=== PATIENT | male | born 1995 | race Caucasian/White ===

== ENCOUNTER 2019-07-31 16:24 | Inpatient (IN) ==
[2019-07-31 17:15] LABS: Basophils # (auto) 0.01 K/uL (0-0.2); Basophils % (auto) 0.1 %; Hematocrit (blood only) 33.9 % (42-52); Hemoglobin 11.7 g/dL (14.0-18.0); Immature Granulocytes # (auto) 0.02 K/uL (0.00-0.02); Immature Granulocytes % (auto) 0.2 %; Lymphocytes % (auto) 12.1 %; Mean Corpuscular Hemoglobin 30.7 pg (25-34); Mean Corpuscular Hgb Conc 34.5 g/dL (32-36); Mean Platelet Volume 11.1 fL (7.4-10.4); Monocytes # (auto) 0.34 K/uL (0.11-0.59); Monocytes % (auto) 4.1 %; Neutrophils # (auto) 6.88 K/uL (1.4-6.5); Neutrophils % (auto) 83.5 %; Platelet Count 202 K/uL (130-400); RDW Coefficient of Variation 12.5 % (11.5-14.5); RDW Standard Deviation 39.9 fL (36.4-46.3); Red Blood Count 3.81 M/uL (4.7-6.1); White Blood Count 8.25 K/uL (4.8-10.8)
[2019-07-31] MEDS ORDERED: SODIUM CHLORIDE 0.9% 1000ML 1,000 ML IV SCH (17:15)
[2019-07-31] MEDS ORDERED: MECLIZINE HCL 25 MG TAB PO STA (17:24)
[2019-07-31] MEDS ORDERED: DIAZEPAM 5 MG/ML INJ 10ML VIAL IV STA (17:24)
[2019-07-31] MEDS ORDERED: SODIUM CHLORIDE 0.9% 1000ML 1,000 ML IV ONE ×2 (17:24→17:46)
[2019-07-31] MEDS ORDERED: ACETAMINOPHEN 1,000 MG/100 ML VIAL IV STA (17:25)
[2019-07-31 17:38] LABS: Alanine Aminotransferase 33 U/L (12-78); Albumin Level 3.9 gm/dl (3.4-5.0); Aspartate Aminotransferase 15 U/L (15-37); BUN Creatinine Ratio 45.1 (10-20); Blood Urea Nitrogen 33 mg/dl (7-18); Calcium 8.6 mg/dl (8.5-10.1); Carbon Dioxide 25 mmol/L (21-32); Chloride 106 mmol/L (98-107); Est GFR (African American) > 150.0; Est GFR (Non-African American) 131.7; Glucose 117 mg/dl (70-99); Lipase 43 U/L (73-393); Potassium 3.8 mmol/L (3.5-5.1); Sodium 137 mmol/L (136-145)
[2019-07-31 17:41] LABS: Albumin Globulin Ratio 1.5 (0.9-2); Alkaline Phosphatase 65 U/L (45-117); Bilirubin,Total 0.6 mg/dl (0.2-1); Globulin 2.6 gm/dl (2.5-4.0); Total Protein 6.5 gm/dl (6.4-8.2)
[2019-07-31 18:08] LABS: Creatine Kinase 64 U/L (39-308); Creatine Kinase MB < 1.0 ng/ml (0.5-3.6); Magnesium 2.1 mg/dl (1.8-2.4); Troponin I < 0.015 ng/ml (0-0.045)
[2019-07-31] MEDS ORDERED: OPTIRAY 320 125ml IV PRN (18:41)
[2019-07-31 18:45] LABS: Appearance Urine Clear (Clear); Bilirubin Urine Negative (Negative); Blood Urine Negative (Negative); Color Urine Yellow; Glucose Urine UA Negative (Negative); Leukocyte Esterase Urine Negative (Negative); Nitrite Urine Negative (Negative); Protein Urine Negative (Negative); Specific Gravity Urine 1.027 (1.000-1.030); Urobilinogen Urine Negative (Negative)
--- NOTE | 2019-07-31 18:50 | CT Scan Report ---
CT angio head w con CLINICAL HISTORY: 23 years-old Male with Pt c/o severe dizzinss. Acute severe dizziness with synco pe and nausea COMPARISON STUDY: Head CT of same day TECHNIQUE: Following the IV administration of 118 cc of Optiray 320, CT angiogram of the brain was pe rformed from the skull base to the vertex. Images are reviewed in the axial, sagittal, and coronal pl anes. 3-D MIPS images are created and assessed. IV contrast was administered without complication. Al l measurements were obtained according to NASCET criteria. A dose lowering technique was utilized adh ering to the principles of ALARA. CT DOSE: 1201.56 mGy.cm FINDINGS: CT ANGIOGRAM OF THE BRAIN: The imaged bilateral internal carotid arteries are patent. The bilateral anterior and middle cerebral arteries are also patent. The vertebrobasilar system and posterior cerebral arteries are widely har[place] nt. There is no aneurysm, high-grade stenosis, or proximal branch occlusion identified. Dural sinuses appear patent. IMPRESSION: Unremarkable CTA of the head. The above report was generated using voice recognition software. It may contain grammatical, syntax o r spelling errors. Electronically signed by: Jerome Sanchez M.D. 07/31/2019 6:49 PM
[2019-07-31 18:53] LABS: Ketones Urine 4+ (Negative)
--- NOTE | 2019-07-31 18:55 | CT Scan Report ---
CT angio neck with con CLINICAL HISTORY: Severe dizziness. NAUSEA, possible stroke. Possible dissection. COMPARISON STUDY: No previous studies for comparison. TECHNIQUE: CT angiography was performed from the aortic arch to the skull base. MIP imaging was perfo rmed. The patient was scanned in a dynamic helical fashion during intravenous administration of 118 c c of Optiray 320. A dose lowering technique was utilized adhering to the principles of ALARA. CT DOSE: Technique: CT angiogram of the carotid and vertebral arteries was obtained using intravenous contrast and 3-D reconstruction. NASCET criteria was utilized. Findings: There is an 18 mm prevascular soft tissue nodule, likely related to residual thymus. The right carotid revealed no evidence of aneurysm and no evidence of dissection. There is no evidenc e of hemodynamic significant stenosis. The left carotid revealed no evidence of hemodynamic significant stenosis. There is no evidence of an eurysm. There is no evidence of dissection. There is no evidence of hemodynamically significant vertebral stenosis. There is no evidence of verte bral dissection. IMPRESSION: No evidence of hemodynamically significant carotid or vertebral artery stenosis. No evidence of disse ction. Electronically signed by: Manas Candelario M.D. 07/31/2019 6:54 PM
--- NOTE | 2019-07-31 18:55 | CT Scan Report ---
CT head/brain wo con CLINICAL HISTORY: Dizziness. COMPARISON STUDY: No previous studies for comparison. TECHNIQUE: Axial CT of the brain is performed from the vertex to the skull base. IV contrast was not administered for this examination. A dose lowering technique was utilized adhering to the principles of ALARA. CT DOSE: FINDINGS: No intra or extra-axial mass lesions are visualized. There is no CT evidence of acute cortical infarc tion. There is no evidence of midline shift. There is no acute hemorrhage. No calvarial fractures ar e visualized. There is no evidence of pathologic ventricular dilatation. There is partial opacification of a left posterior ethmoid air cell. IMPRESSION: 1. Moderate inflammatory changes within the left ethmoid sinus. Otherwise normal noncontrast head CT. Electronically signed by: Manas Candelario M.D. 07/31/2019 6:53 PM
[2019-07-31] MEDS ORDERED: SODIUM CHLORIDE 0.65% NA SOLN 45 ML (OCEAN) ONE (18:58)
[2019-07-31] MEDS ORDERED: AMOXICILLIN/CLAVULANATE 875 MG TAB PO ONE (18:58)
[2019-07-31] MEDS ORDERED: PANTOprazole 80 MG in DEXTROSE 5% 100 ML IV STA (19:37)
[2019-07-31] MEDS: PANTOprazole 40 MG in DEXTROSE 5% 100 ML IV SCH (20:30)
--- NOTE | 2019-07-31 21:12 | Emergency Department Note ---
Entered by Kristyn Rice acting as a scribe for Estevan Dunn MD History of Present Illness General Chief complaint: Nausea Stated complaint: NAUSEA, ILLNESS Time Seen by Provider: 07/31/19 17:16 Source: patient History of Present Illness Provider complaint: Nausea Onset (ago): day(s) 1 Location: abdomen Relieved By: + none Exacerbated By: + movement Associated symptoms: + nausea/vomiting, + weakness and + other (Dizziness) The patient is a 23 year old male who presents to the Emergency Room with complaints of nausea that began last night. The patient states the symptoms are exacerbated by movement and is not relieved by anything specific. The patient reports he has felt faint and whenever he tries to walk around he collapses. The patient reports experiencing vomiting and dizziness when he sits up and weakness when walking around. The patient denies any abdominal pain or any recent alcohol consumption. The patient mentioned that he has a neurological issue that causes him to get dizzy and faint but it has never included nausea like it is today. The patient denies doing any hardcore physical activity in the past few days. Home Medications Home Medications Medication Instructions Recorded Confirmed Type Unknown Skin Cream 1 applic TOPICAL DAILY 04/18/19 07/31/19 History Unknown Topical Gel 1 applic TOPICAL DAILY 04/18/19 07/31/19 History minocycline 100 mg PO BID 04/18/19 07/31/19 History cholecalciferol (vitamin D3) 1,000 unit PO DAILY 07/31/19 07/31/19 History [Vitamin D3] escitalopram oxalate [Lexapro] 15 mg PO DAILY 07/31/19 07/31/19 History fludrocortisone 0.1 mg PO QAM #30 tab 08/03/19 Rx pantoprazole 40 mg PO QAM #30 tab 08/03/19 Rx Allergies Allergy/AdvReac Type Severity Reaction Status Date / Time sulfamethoxazole Allergy Unknown Unverified 07/31/19 19:54 Past Med/Surg History Medical History No chronic diseases present Surgical History No significant past surgical history Family History Other No pertinent family history in first degree relatives Social History Preferred Language: Vietnamese Communication Ability: Effective Highway Painter Required: No Beliefs That Will Affect Care: None Current Living Situation: Alone Current Living Situation Comment: own room in dormitory Feels Safe at Home: Yes Smoking Status: Never smoker Hx Alcohol Use: Yes Alcohol type: beer Hx Substance Use: No Review of Systems See HPI for pertinent positives & negatives. and A total of 10 systems reviewed and were otherwise negative Physical Exam Vital Signs Vital Signs - 24 hr 07/31/19 16:41 07/31/19 17:00 07/31/19 17:07 Temperature 36.8 C Temperature Source Oral Pulse Rate - Lying Pulse Rate - Sitting Pulse Rate - Standing Pulse Rate 212 H 91 H Pulse Rate from SpO2 Sensor 90 Respiratory Rate 12 14 Respiratory Effort / Characteristics Spontaneous Blood Pressure - Lying Blood Pressure - Sitting Blood Pressure- Standing Blood Pressure 112/68 117/55 L Blood Pressure Mean 82 76 Blood Pressure Position Sitting Pulse Oximetry 100 100 Oxygen Delivery Method Room Air Room Air Sepsis Recent Fever Within 48 Hours No Sepsis New/Unexplained Change in Mental Status No Sepsis Action Taken by Nursing No Action Required 07/31/19 17:14 07/31/19 17:20 07/31/19 17:30 Temperature Temperature Source Pulse Rate - Lying Pulse Rate - Sitting Pulse Rate - Standing Pulse Rate 85 85 83 Pulse Rate from SpO2 Sensor 86 86 84 Respiratory Rate 19 18 15 Respiratory Effort / Characteristics Blood Pressure - Lying Blood Pressure - Sitting Blood Pressure- Standing Blood Pressure 109/50 L Blood Pressure Mean 75 Blood Pressure Position Pulse Oximetry 100 100 100 Oxygen Delivery Method Sepsis Recent Fever Within 48 Hours Sepsis New/Unexplained Change in Mental Status Sepsis Action Taken by Nursing 07/31/19 17:31 07/31/19 17:41 07/31/19 17:50 Temperature Temperature Source Pulse Rate - Lying Pulse Rate - Sitting Pulse Rate - Standing Pulse Rate 83 81 89 Pulse Rate from SpO2 Sensor 84 Respiratory Rate 13 20 15 Respiratory Effort / Characteristics Blood Pressure - Lying Blood Pressure - Sitting Blood Pressure- Standing Blood Pressure Blood Pressure Mean Blood Pressure Position Pulse Oximetry 100 Oxygen Delivery Method Sepsis Recent Fever Within 48 Hours Sepsis New/Unexplained Change in Mental Status Sepsis Action Taken by Nursing 07/31/19 18:00 07/31/19 18:01 07/31/19 18:10 Temperature Temperature Source Pulse Rate - Lying Pulse Rate - Sitting Pulse Rate - Standing Pulse Rate 81 75 73 Pulse Rate from SpO2 Sensor 80 76 75 Respiratory Rate 21 19 18 Respiratory Effort / Characteristics Blood Pressure - Lying Blood Pressure - Sitting Blood Pressure- Standing Blood Pressure 113/55 L Blood Pressure Mean 74 Blood Pressure Position Pulse Oximetry 100 100 100 Oxygen Delivery Method Sepsis Recent Fever Within 48 Hours Sepsis New/Unexplained Change in Mental Status Sepsis Action Taken by Nursing 07/31/19 18:14 07/31/19 18:15 07/31/19 18:17 Temperature Temperature Source Pulse Rate - Lying Pulse Rate - Sitting Pulse Rate - Standing Pulse Rate 83 102 H Pulse Rate from SpO2 Sensor Respiratory Rate 18 17 Respiratory Effort / Characteristics Blood Pressure - Lying Blood Pressure - Sitting Blood Pressure- Standing Blood Pressure 123/56 L 115/64 92/72 L Blood Pressure Mean 72 86 78 Blood Pressure Position Pulse Oximetry Oxygen Delivery Method Sepsis Recent Fever Within 48 Hours Sepsis New/Unexplained Change in Mental Status Sepsis Action Taken by Nursing 07/31/19 18:34 07/31/19 19:08 07/31/19 19:09 Temperature Temperature Source Pulse Rate - Lying 87 Pulse Rate - Sitting 112 H Pulse Rate - Standing 113 H Pulse Rate 93 H 86 Pulse Rate from SpO2 Sensor 94 H 90 Respiratory Rate 17 17 Respiratory Effort / Characteristics Blood Pressure - Lying 123/56 L Blood Pressure - Sitting 115/64 Blood Pressure- Standing 92/72 L Blood Pressure 133/67 Blood Pressure Mean 76 Blood Pressure Position Pulse Oximetry 100 100 Oxygen Delivery Method Sepsis Recent Fever Within 48 Hours Sepsis New/Unexplained Change in Mental Status Sepsis Action Taken by Nursing 07/31/19 19:10 07/31/19 19:26 07/31/19 19:30 Temperature Temperature Source Pulse Rate - Lying Pulse Rate - Sitting Pulse Rate - Standing Pulse Rate 98 H 102 H 92 H Pulse Rate from SpO2 Sensor 96 H 101 H 96 H Respiratory Rate 25 H 20 19 Respiratory Effort / Characteristics Blood Pressure - Lying Blood Pressure - Sitting Blood Pressure- Standing Blood Pressure Blood Pressure Mean Blood Pressure Position Pulse Oximetry 100 100 100 Oxygen Delivery Method Sepsis Recent Fever Within 48 Hours Sepsis New/Unexplained Change in Mental Status Sepsis Action Taken by Nursing 07/31/19 19:40 07/31/19 19:50 07/31/19 20:00 Temperature Temperature Source Pulse Rate - Lying Pulse Rate - Sitting Pulse Rate - Standing Pulse Rate 92 H 85 87 Pulse Rate from SpO2 Sensor 97 H 85 88 Respiratory Rate 16 15 18 Respiratory Effort / Characteristics Blood Pressure - Lying Blood Pressure - Sitting Blood Pressure- Standing Blood Pressure Blood Pressure Mean Blood Pressure Position Pulse Oximetry 100 100 100 Oxygen Delivery Method Sepsis Recent Fever Within 48 Hours Sepsis New/Unexplained Change in Mental Status Sepsis Action Taken by Nursing 07/31/19 20:10 07/31/19 20:20 07/31/19 20:30 Temperature Temperature Source Pulse Rate - Lying Pulse Rate - Sitting Pulse Rate - Standing Pulse Rate 93 H 91 H 92 H Pulse Rate from SpO2 Sensor 92 H 91 H 90 Respiratory Rate 21 18 16 Respiratory Effort / Characteristics Blood Pressure - Lying Blood Pressure - Sitting Blood Pressure- Standing Blood Pressure Blood Pressure Mean Blood Pressure Position Pulse Oximetry 100 100 100 Oxygen Delivery Method Sepsis Recent Fever Within 48 Hours Sepsis New/Unexplained Change in Mental Status Sepsis Action Taken by Nursing 07/31/19 20:39 07/31/19 20:40 Temperature Temperature Source Pulse Rate - Lying Pulse Rate - Sitting Pulse Rate - Standing Pulse Rate 92 H 91 H Pulse Rate from SpO2 Sensor 94 H 89 Respiratory Rate 15 24 Respiratory Effort / Characteristics Blood Pressure - Lying Blood Pressure - Sitting Blood Pressure- Standing Blood Pressure 130/63 Blood Pressure Mean 69 Blood Pressure Position Pulse Oximetry 100 100 Oxygen Delivery Method Sepsis Recent Fever Within 48 Hours Sepsis New/Unexplained Change in Mental Status Sepsis Action Taken by Nursing GENERAL: Awake, alert, well-appearing, in no acute distress. Unable to sit up in bed due to dizziness. HENT: Normocephalic, atraumatic. Oropharynx unremarkable. EYES: Normal conjunctiva. Sclera non-icteric. NECK: Supple. No nuchal rigidity. FROM. No JVD. RESPIRATORY: Clear to auscultation. CARDIAC: Regular rate, normal rhythm. Extremities warm and well perfused. Pulses equal. ABDOMEN: Soft, non-distended. No tenderness to palpation. No rebound or guarding. No masses. RECTAL: Deferred. MUSCULOSKELETAL: Chest examination reveals no tenderness. The back is symmetrical on inspection without obvious abnormality. There is no CVA tenderness to palpation. No joint edema. LOWER EXTREMITIES: Calves are equal size bilaterally and non-tender. No edema. No discoloration. NEURO: Normal sensorium. No sensory or motor deficits noted. SKIN: No rash or jaundice noted. Course Course 1717: Past medical records reviewed. The patient was evaluated in room A01. A complete history and physical exam was performed. 1942: I spoke with Dr. Jesus- Hospitalist about the patient's case and he will accept the patient for further evaluation. Administered Medications Discontinued Medications Acetaminophen (Tylenol) 650 mg PO Q4H PRN PRN Reason: pain/fever Stop: 08/30/19 22:51 Last Admin: 08/02/19 07:49 Dose: 650 mg Documented by: [id number] Admin: 08/01/19 20:44 Dose: 650 mg Documented by: [id number] Admin: 08/01/19 11:49 Dose: 650 mg Documented by: [id number] Admin: 08/01/19 07:48 Dose: 650 mg Documented by: [id number] Amoxicillin/Clavulanate Potassium (Augmentin 875mg) 1 tab PO NOW ONE Stop: 07/31/19 18:59 Last Admin: 07/31/19 19:12 Dose: 1 tab Documented by: [id number] Diazepam (Valium) 5 mg IV NOW STA Stop: 07/31/19 17:25 Last Admin: 07/31/19 17:38 Dose: 5 mg Documented by: [id number] Diphenhydramine HCl (Benadryl) 25 mg IV NOW STA Stop: 08/01/19 11:58 Last Admin: 08/01/19 12:30 Dose: 25 mg Documented by: [id number] Escitalopram Oxalate (Lexapro Tab) 15 mg PO DAILY CONY Stop: 08/31/19 08:59 Last Admin: 08/03/19 09:03 Dose: 15 mg Documented by: [id number] Admin: 08/02/19 08:54 Dose: 15 mg Documented by: [id number] Admin: 08/01/19 09:20 Dose: 15 mg Documented by: [id number] Fludrocortisone Acetate (Florinef) 0.1 mg PO QAM CONY Stop: 09/02/19 09:44 Last Admin: 08/03/19 10:40 Dose: 0.1 mg Documented by: [id number] Sodium Chloride (Nss 1000ml) 1,000 mls @ 999 mls/hr IV .Q1H1M CONY Stop: 07/31/19 18:15 Last Infusion: 07/31/19 18:14 Dose: 0 mls/hr Documented by: [id number] Admin: 07/31/19 17:08 Dose: 999 mls/hr Documented by: [id number] Sodium Chloride (Nss 1000ml) 1,000 mls @ 999 mls/hr IV .Q1H1M ONE Stop: 07/31/19 18:24 Last Infusion: 07/31/19 18:41 Dose: 0 mls/hr Documented by: [id number] Admin: 07/31/19 17:38 Dose: 999 mls/hr Documented by: [id number] Acetaminophen (Ofirmev) 1,000 mg in 100 mls @ 400 mls/hr IV NOW STA Stop: 07/31/19 17:39 Last Infusion: 07/31/19 18:14 Dose: 0 mls/hr Documented by: [id number] Admin: 07/31/19 17:38 Dose: 400 mls/hr Documented by: [id number] Sodium Chloride (Nss 1000ml) 1,000 mls @ 999 mls/hr IV .Q1H1M ONE Stop: 07/31/19 18:46 Last Admin: 07/31/19 18:22 Dose: Not Given Documented by: [id number] Pantoprazole Sodium 80 mg/ (Dextrose) 120 mls @ 480 mls/hr IV NOW STA Stop: 07/31/19 19:51 Last Infusion: 07/31/19 21:34 Dose: 0 mls/hr Documented by: [id number] Admin: 07/31/19 20:30 Dose: 480 mls/hr Documented by: [id number] Pantoprazole Sodium 40 mg/ (Dextrose) 100 mls @ 20 mls/hr IV Q5H [facility] [place] Stop: 08/30/19 19:49 Last Infusion: 08/02/19 16:12 Dose: 0 mls/hr Documented by: [id number] Infusion: 08/02/19 16:12 Dose: 0 mls/hr Documented by: [id number] Infusion: 08/02/19 14:09 Dose: 203 mls/hr Documented by: [id number] Infusion: 08/02/19 13:39 Dose: 20 mls/hr Documented by: [id number] Infusion: 08/02/19 11:17 Dose: 0 mls/hr Documented by: [id number] Admin: 08/02/19 07:52 Dose: 20 mls/hr Documented by: [id number] Infusion: 08/02/19 07:52 Dose: 20 mls/hr Documented by: [id number] Admin: 08/02/19 03:14 Dose: 20 mls/hr Documented by: [id number] Infusion: 08/02/19 03:14 Dose: 20 mls/hr Documented by: [id number] Admin: 08/01/19 22:31 Dose: 20 mls/hr Documented by: [id number] Infusion: 08/01/19 22:31 Dose: 20 mls/hr Documented by: [id number] Admin: 08/01/19 17:42 Dose: 20 mls/hr Documented by: [id number] Infusion: 08/01/19 17:42 Dose: 0 mls/hr Documented by: [id number] Infusion: 08/01/19 13:57 Dose: 0 mls/hr Documented by: [id number] Admin: 08/01/19 11:16 Dose: 20 mls/hr Documented by: [id number] Infusion: 08/01/19 11:08 Dose: 20 mls/hr Documented by: [id number] Admin: 08/01/19 06:08 Dose: 20 mls/hr Documented by: [id number] Infusion: 08/01/19 06:08 Dose: 20 mls/hr Documented by: [id number] Admin: 08/01/19 01:34 Dose: 20 mls/hr Documented by: [id number] Infusion: 08/01/19 01:34 Dose: 0 mls/hr Documented by: [id number] Admin: 07/31/19 20:30 Dose: 20 mls/hr Documented by: [id number] Sodium Chloride (Nss 1000ml) 1,000 mls @ 125 mls/hr IV .Q8H CONY Stop: 08/30/19 22:51 Last Infusion: 08/02/19 16:11 Dose: 0 mls/hr Documented by: [id number] Infusion: 08/02/19 16:11 Dose: 0 mls/hr Documented by: [id number] Infusion: 08/02/19 14:08 Dose: 125 mls/hr Documented by: [id number] Infusion: 08/02/19 13:39 Dose: 125 mls/hr Documented by: [id number] Infusion: 08/02/19 11:16 Dose: 0 mls/hr Documented by: [id number] Admin: 08/02/19 04:54 Dose: 125 mls/hr Documented by: [id number] Infusion: 08/02/19 04:50 Dose: 125 mls/hr Documented by: [id number] Admin: 08/01/19 20:50 Dose: 125 mls/hr Documented by: [id number] Infusion: 08/01/19 20:50 Dose: 125 mls/hr Documented by: [id number] Infusion: 08/01/19 20:06 Dose: 125 mls/hr Documented by: [id number] Infusion: 08/01/19 10:08 Dose: 0 mls/hr Documented by: [id number] Admin: 08/01/19 07:23 Dose: 125 mls/hr Documented by: [id number] Infusion: 08/01/19 07:23 Dose: 125 mls/hr Documented by: [id number] Infusion: 08/01/19 06:51 Dose: 125 mls/hr Documented by: [id number] Admin: 07/31/19 23:28 Dose: 125 mls/hr Documented by: [id number] Lactated Ringer's (Lr) 1,000 mls @ 999 mls/hr IV .Q1H1M ONE Stop: 08/01/19 10:02 Last Infusion: 08/01/19 10:03 Dose: 0 mls/hr Documented by: [id number] Admin: 08/01/19 09:20 Dose: 999 mls/hr Documented by: [id number] Prochlorperazine 10 mg/ (Syringe) 10 mls @ 5 mls/min IV ONE ONE Stop: 08/01/19 12:01 Last Admin: 08/01/19 12:30 Dose: 5 mls/min Documented by: [id number] Sodium Chloride (Nss 1000ml) 1,000 mls @ 15 mls/hr IV .Q24H CONY Stop: 08/02/19 14:29 Last Admin: 08/01/19 15:58 Dose: Not Given Documented by: [id number] Sodium Chloride (Nss 1000ml) 1,000 mls @ 15 mls/hr IV .Q24H CONY Stop: 08/03/19 13:29 Last Admin: 08/02/19 16:45 Dose: Not Given Documented by: [id number] Ioversol (Optiray 320 125ml) 118 ml IV ONCE PRN PRN Reason: Interaction Checking Stop: 08/04/19 18:40 Last Admin: 07/31/19 18:41 Dose: 118 ml Documented by: [id number] Lidocaine HCl (Xylocaine 2%) Confirm Administered Dose 2 ml INFIL .STK-MED ONE Stop: 08/01/19 14:32 Last Admin: 08/01/19 15:58 Dose: Not Given Documented by: [id number] Meclizine HCl (Antivert) 25 mg PO NOW STA Stop: 07/31/19 17:25 Last Admin: 07/31/19 17:38 Dose: 25 mg Documented by: [id number] Midazolam HCl (Versed) Confirm Administered Dose 2 mg .ROUTE .STK-MED ONE Stop: 08/02/19 11:42 Last Admin: 08/02/19 13:39 Dose: Not Given Documented by: [id number] Pantoprazole Sodium (Protonix) 40 mg PO QAM [facility] [place] Stop: 09/02/19 08:59 Last Admin: 08/03/19 09:03 Dose: 40 mg Documented by: [id number] Polyethylene Glycol/Electrolytes (Golytely) 8 dose PO TODAY@0700,1800 [facility] [place] Stop: 08/02/19 07:01 Last Admin: 08/02/19 07:50 Dose: 8 dose Documented by: [id number] Admin: 08/01/19 18:00 Dose: 8 dose Documented by: [id number] Promethazine HCl (Phenergan) 25 mg PO Q6H PRN PRN Reason: Nausea And Vomiting Stop: 08/30/19 22:51 Last Admin: 08/01/19 11:10 Dose: 25 mg Documented by: [id number] Propofol (Diprivan) Confirm Administered Dose 400 mg IV .STK-MED ONE Stop: 08/01/19 14:32 Last Admin: 08/01/19 15:58 Dose: Not Given Documented by: [id number] Propofol (Diprivan) Confirm Administered Dose 200 mg IV .STK-MED ONE Stop: 08/01/19 14:37 Last Admin: 08/01/19 15:58 Dose: Not Given Documented by: [id number] Sodium Chloride (Ector Nasal) 2 sprays NA NOW ONE Stop: 07/31/19 18:59 Last Admin: 07/31/19 19:12 Dose: 2 sprays Documented by: [id number] Sodium Chloride (Sodium Chloride) 1 gm PO NOW STA Stop: 08/03/19 10:28 Last Admin: 08/03/19 10:40 Dose: 1 gm Documented by: [id number] Medical Decision Making Differential Diagnosis Differential diagnosis includes etiologies such as benign positional vertigo, dehydration, hypovolemia, anemia, tumor, infection, hypoglycemia, electrolyte abnormalities, cardiac sources, intracerebral event, toxicologic, neurologic, as well as others were entertained. Medical Records Attestation: I reviewed the patient's medical records. Home Medications Current Medication List: was personally reviewed by me Laboratory Data Attestation: I reviewed the patient's lab results. Result diagrams: 08/03/19 07:39 08/03/19 07:39 Lab Results 07/31/19 07/31/19 07/31/19 Range/Units 17:01 17:01 17:01 WBC 8.25 (4.8-10.8) K/uL RBC 3.81 L (4.7-6.1) M/uL Hgb 11.7 L (14.0-18.0) g/dL Hct 33.9 L (42-52) % MCV 89.0 (80-100) fL MCH 30.7 (25-34) pg MCHC 34.5 (32-36) g/dL RDW Std Deviation 39.9 (36.4-46.3) fL RDW Coeff of Monica 12.5 (11.5-14.5) % Plt Count 202 (130-400) K/uL MPV 11.1 H (7.4-10.4) fL Immature Gran % (Auto) 0.2 % Neut % (Auto) 83.5 % Lymph % (Auto) 12.1 % [place] % (Auto) 4.1 % Eos % (Auto) 0.0 % Baso % (Auto) 0.1 % Immature Gran # (Auto) 0.02 (0.00-0.02) K/uL Neut # (Auto) 6.88 H (1.4-6.5) K/uL Lymph # (Auto) 1.00 L (1.2-3.4) K/uL [place] # (Auto) 0.34 (0.11-0.59) K/uL Eos # (Auto) 0.00 (0-0.5) K/uL Baso # (Auto) 0.01 (0-0.2) K/uL Sodium 137 (136-145) mmol/L Potassium 3.8 (3.5-5.1) mmol/L Chloride 106 (98-107) mmol/L Carbon Dioxide 25 (21-32) mmol/L Anion Gap 6.0 (3-11) BUN 33 H (7-18) mg/dl Creatinine 0.73 (0.6-1.4) mg/dl Est Cr Clr Drug Dosing Not Reportable Est GFR ( Amer) > 150.0 Est GFR (Non-Af Amer) 131.7 BUN/Creatinine Ratio 45.1 H (10-20) Glucose 117 H (70-99) mg/dl Calcium 8.6 (8.5-10.1) mg/dl Magnesium 2.1 (1.8-2.4) mg/dl Total Bilirubin 0.6 (0.2-1) mg/dl AST 15 (15-37) U/L ALT 33 (12-78) U/L Alkaline Phosphatase 65 (45-117) U/L Total Creatine Kinase 64 (39-308) U/L CK-MB (CK-2) < 1.0 (0.5-3.6) ng/ml CK/CKMB % Calc TNP Troponin I < 0.015 (0-0.045) ng/ml Total Protein 6.5 (6.4-8.2) gm/dl Albumin 3.9 (3.4-5.0) gm/dl Globulin 2.6 (2.5-4.0) gm/dl Albumin/Globulin Ratio 1.5 (0.9-2) Lipase 43 L (73-393) U/L Urine Color Urine Appearance (Clear) Urine pH (4.5-7.5) Ur Specific Ald[place] (1.000-1.030) Urine Protein (Negative) Urine Glucose (UA) (Negative) Urine Ketones (Negative) Urine Blood (Negative) Urine Nitrite (Negative) Urine Bilirubin (Negative) Urine Urobilinogen (Negative) Ur Leukocyte Esterase (Negative) Blood Type Blood Type Recheck Antibody Screen Crossmatch 07/31/19 07/31/19 08/01/19 Range/Units 18:25 19:40 01:01 WBC (4.8-10.8) K/uL RBC (4.7-6.1) M/uL Hgb 8.4 L D (14.0-18.0) g/dL Hct 24.4 L (42-52) % MCV (80-100) fL MCH (25-34) pg MCHC (32-36) g/dL RDW Std Deviation (36.4-46.3) fL RDW Coeff of Monica (11.5-14.5) % Plt Count (130-400) K/uL MPV (7.4-10.4) fL Immature Gran % (Auto) % Neut % (Auto) % Lymph % (Auto) % [place] % (Auto) % Eos % (Auto) % Baso % (Auto) % Immature Gran # (Auto) (0.00-0.02) K/uL Neut # (Auto) (1.4-6.5) K/uL Lymph # (Auto) (1.2-3.4) K/uL [place] # (Auto) (0.11-0.59) K/uL Eos # (Auto) (0-0.5) K/uL Baso # (Auto) (0-0.2) K/uL Sodium (136-145) mmol/L Potassium (3.5-5.1) mmol/L Chloride (98-107) mmol/L Carbon Dioxide (21-32) mmol/L Anion Gap (3-11) BUN (7-18) mg/dl Creatinine (0.6-1.4) mg/dl Est Cr Clr Drug Dosing Est GFR ( Amer) Est GFR (Non-Af Amer) BUN/Creatinine Ratio (10-20) Glucose (70-99) mg/dl Calcium (8.5-10.1) mg/dl Magnesium (1.8-2.4) mg/dl Total Bilirubin (0.2-1) mg/dl AST (15-37) U/L ALT (12-78) U/L Alkaline Phosphatase (45-117) U/L Total Creatine Kinase (39-308) U/L CK-MB (CK-2) (0.5-3.6) ng/ml CK/CKMB % Calc Troponin I (0-0.045) ng/ml Total Protein (6.4-8.2) gm/dl Albumin (3.4-5.0) gm/dl Globulin (2.5-4.0) gm/dl Albumin/Globulin Ratio (0.9-2) Lipase (73-393) U/L Urine Color Yellow Urine Appearance Clear (Clear) Urine pH 6.0 (4.5-7.5) Ur Specific Ald[place] 1.027 (1.000-1.030) Urine Protein Negative (Negative) Urine Glucose (UA) Negative (Negative) Urine Ketones 4+ H (Negative) Urine Blood Negative (Negative) Urine Nitrite Negative (Negative) Urine Bilirubin Negative (Negative) Urine Urobilinogen Negative (Negative) Ur Leukocyte Esterase Negative (Negative) Blood Type A Positive Blood Type Recheck Antibody Screen NEGATIVE Crossmatch See Detail 08/01/19 08/01/19 08/01/19 Range/Units 01:01 06:53 06:53 WBC (4.8-10.8) K/uL RBC (4.7-6.1) M/uL Hgb 8.1 L (14.0-18.0) g/dL Hct 23.6 L (42-52) % MCV (80-100) fL MCH (25-34) pg MCHC (32-36) g/dL RDW Std Deviation (36.4-46.3) fL RDW Coeff of Monica (11.5-14.5) % Plt Count (130-400) K/uL MPV (7.4-10.4) fL Immature Gran % (Auto) % Neut % (Auto) % Lymph % (Auto) % [place] % (Auto) % Eos % (Auto) % Baso % (Auto) % Immature Gran # (Auto) (0.00-0.02) K/uL Neut # (Auto) (1.4-6.5) K/uL Lymph # (Auto) (1.2-3.4) K/uL [place] # (Auto) (0.11-0.59) K/uL Eos # (Auto) (0-0.5) K/uL Baso # (Auto) (0-0.2) K/uL Sodium 141 (136-145) mmol/L Potassium 3.7 (3.5-5.1) mmol/L Chloride 111 H (98-107) mmol/L Carbon Dioxide 25 (21-32) mmol/L Anion Gap 5.0 (3-11) BUN 18 (7-18) mg/dl Creatinine 0.71 (0.6-1.4) mg/dl Est Cr Clr Drug Dosing 172.9 Est GFR ( Amer) > 150.0 Est GFR (Non-Af Amer) 133.2 BUN/Creatinine Ratio 24.6 H (10-20) Glucose 85 (70-99) mg/dl Calcium 8.2 L (8.5-10.1) mg/dl Magnesium (1.8-2.4) mg/dl Total Bilirubin 0.5 (0.2-1) mg/dl AST 10 L (15-37) U/L ALT 23 (12-78) U/L Alkaline Phosphatase 46 (45-117) U/L Total Creatine Kinase (39-308) U/L CK-MB (CK-2) (0.5-3.6) ng/ml CK/CKMB % Calc Troponin I (0-0.045) ng/ml Total Protein 4.6 L D (6.4-8.2) gm/dl Albumin 2.7 L (3.4-5.0) gm/dl Globulin 1.9 L (2.5-4.0) gm/dl Albumin/Globulin Ratio 1.4 (0.9-2) Lipase (73-393) U/L Urine Color Urine Appearance (Clear) Urine pH (4.5-7.5) Ur Specific [place] (1.000-1.030) Urine Protein (Negative) Urine Glucose (UA) (Negative) Urine Ketones (Negative) Urine Blood (Negative) Urine Nitrite (Negative) Urine Bilirubin (Negative) Urine Urobilinogen (Negative) Ur Leukocyte Esterase (Negative) Blood Type Blood Type Recheck A Positive Antibody Screen Crossmatch Imaging Data Radiologist's Impression: Radiology results as stated below per my review and the radiologist's interpretation: CT head/brain wo con CLINICAL HISTORY: Dizziness. COMPARISON STUDY: No previous studies for comparison. TECHNIQUE: Axial CT of the brain is performed from the vertex to the skull base. IV contrast was not administered for this examination. A dose lowering technique was utilized adhering to the principles of ALARA. CT DOSE: FINDINGS: No intra or extra-axial mass lesions are visualized. There is no CT evidence of acute cortical infarction. There is no evidence of midline shift. There is no acute hemorrhage. No calvarial fractures are visualized. There is no evidence of pathologic ventricular dilatation. There is partial opacification of a left posterior ethmoid air cell. IMPRESSION: 1. Moderate inflammatory changes within the left ethmoid sinus. Otherwise normal noncontrast head CT. Electronically signed by: Manas Candelario M.D. 07/31/2019 6:[address] angio head w con CLINICAL HISTORY: 23 years-old Male with Pt c/o severe dizzinss. Acute severe dizziness with syncope and nausea COMPARISON STUDY: Head CT of same day TECHNIQUE: Following the IV administration of 118 cc of Optiray 320, CT angiogram of the brain was performed from the skull base to the vertex. Images are reviewed in the axial, sagittal, and coronal planes. 3-D MIPS images are created and assessed. IV contrast was administered without complication. All measurements were obtained according to NASCET criteria. A dose lowering technique was utilized adhering to the principles of ALARA. CT DOSE: 1201.56 mGy.cm FINDINGS: CT ANGIOGRAM OF THE BRAIN: The imaged bilateral internal carotid arteries are patent. The bilateral anterior and middle cerebral arteries are also patent. The vertebrobasilar system and posterior cerebral arteries are widely patent. There is no aneurysm, high-grade stenosis, or proximal branch occlusion identified. Dural sinuses appear patent. IMPRESSION: Unremarkable CTA of the head. The above report was generated using voice recognition software. It may contain grammatical, syntax or spelling errors. Electronically signed by: Jerome Sanchez M.D. 07/31/2019 6:[address] angio neck with con CLINICAL HISTORY: Severe dizziness. NAUSEA, possible stroke. Possible d issection. COMPARISON STUDY: No previous studies for comparison. TECHNIQUE: CT angiography was performed from the aortic arch to the skull base. MIP imaging was performed. The patient was scanned in a dynamic helical fashion during intravenous administration of 118 cc of Optiray 320. A dose lowering technique was utilized adhering to the principles of ALARA. CT DOSE: Technique: CT angiogram of the carotid and vertebral arteries was obtained using intravenous contrast and 3-D reconstruction. NASCET criteria was utilized. Findings: There is an 18 mm prevascular soft tissue nodule, likely related to residual thymus. The right carotid revealed no evidence of aneurysm and no evidence of dissection. There is no evidence of hemodynamic significant stenosis. The left carotid revealed no evidence of hemodynamic significant stenosis. There is no evidence of aneurysm. There is no evidence of dissection. There is no evidence of hemodynamically significant vertebral stenosis. There is no evidence of vertebral dissection. IMPRESSION: No evidence of hemodynamically significant carotid or vertebral artery stenosis. No evidence of dissection. Electronically signed by: Manas Candelario M.D. 07/31/2019 6:54 PM ECG Data Attestation: I personally reviewed and interpreted this ECG as follows: Indication: + nausea Rate (beats per minute): 85 Rhythm: + normal sinus ECG Intervals/blocks: + Normal QT-c (QTC is 445) ECG ST segments: + Normal ST segments ECG Findings: + Other (Normal axis) Blood Pressure Blood Pressure Findings: Elevated blood pressure Blood Pressure Disposition: further management by hospitalist [facility] Narrative This is a 23-year-old male who presents emergency department complaining of severe dizziness. The patient has a very elevated heart rate upon arrival to the emergency department therefore he was given 2 L of fluid started on Valium as well as meclizine. His hemoglobin was found to be depressed therefore discussing the case with the patient and his mother the patient has been taking a large amount of NSAIDs and I suspect gave himself a GI bleed as he is heme positive on physical examination. He was started on Protonix IV bolus and drip. I did discuss the case with the hospitalist service who agreed to meet the patient. Patient and family were in agreement with the treatment plan. Impression & Plan Acute GI bleeding, Anemia, NSAID long-term use, Dizziness Discharge Plan Visit Data *Final* Discharge Date/Time: 07/31/19 22:32 Chief Complaint: Nausea Stated Complaint: NAUSEA, ILLNESS ED Provider: Estevan Dunn Discharge Problem: Acute GI bleeding, Anemia, NSAID long-term use, Dizziness Patient Disposition: Admitted As Inpatient Discharge Instructions Interventions: ED Discharge Assessment Last Done: 07/31/19 22:32 Discharge Problem: Anemia Qualifiers: Anemia type: unspecified type Qualified Code(s): D64.9 - Anemia, unspecified The scribe's documentation has been prepared under my direction and personally reviewed by me in its entirety. I confirm that the note above accurately reflects all work, treatment, procedures, and medical decision making performed by me.
--- NOTE | 2019-07-31 21:59 | History & Physical Report ---
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 -Monitor h&h q6h -consulted GI; appreciate recs -NPO -IVF -IV protonix Dizziness/nausea/vomiting/collapse/weakness -Phenergan for nausea/vomiting (avoiding zofran in light of lexapro use) -IVF -Has been undergoing investigation as outpatient: thought possible a version of POTS, is due for cardiology appointment in next month -Mother notes family history of HOCM: will order echo for morning -CT Head, CTAngio head/neck normal Anxiety -Cont lexapro 15 DVTP: SCDs in light of GI bleed; low risk for DVT Code: FULL Dispo: admit to med/surg (2) NSAID long-term use: (3) Dizziness: (4) Anxiety and depression: (5) Nausea and vomiting: (6) Collapse: History of Present Illness Chief Complaint: weakness, dark stool Primary Care Provider: [facility] Patient is a pleasant 23-year-old male [employer] student with past medical history of anxiety. He presents to the ER with an acute worsening of chronic dark stool which he noted today. He notes that he takes approximately 3 tablets of regular strength Motrin 3 times a day and has been doing so for the past several months. Manan has been experiencing symptoms of regular weakness, dizziness, fatigue, for which he is being worked up by his PCP, endocrinology, and a pending cardiology consult. He states that taking the Motrin has seemed to help with the symptoms and therefore that is why he is been taking this for so long. He notes that he has noticed some dark stool in the past however today especially it seemed closer to black in color which was concerning to him. He also notes that yesterday he felt extremely fatigued, was having difficulty sleeping, reports nausea, vomiting, weakness. He got up to use the restroom at which time he collapsed and is unsure if he passed out, but laid on the floor until he was found by his roommate. He was due to have a appointment at [facility] today, however felt too weak to get up and go to this appointment. When he vomited today he states this was green in color and denies any pink frothy or red substance in the vomit. Evaluation in the ER disclosed an anemia with a hemoglobin of 11.7 and hematocrit of 34. Labs were otherwise within normal limits. Because of his collapse, he was investigated with a CT head and CT Angio of head and neck which were found to be normal. Allergies Allergy/AdvReac Type Severity Reaction Status Date / Time sulfamethoxazole Allergy Unknown Unverified 07/31/19 19:54 Home Medications Home Medications Medication Instructions Recorded Confirmed Type Unknown Skin Cream 1 applic TOPICAL DAILY 04/18/19 07/31/19 History Unknown Topical Gel 1 applic TOPICAL DAILY 04/18/19 07/31/19 History minocycline 100 mg PO BID 04/18/19 07/31/19 History cholecalciferol (vitamin D3) 1,000 unit PO DAILY 07/31/19 07/31/19 History [Vitamin D3] escitalopram oxalate [Lexapro] 15 mg PO DAILY 07/31/19 07/31/19 History ibuprofen [Motrin IB] 600 - 800 mg PO Q6H PRN 07/31/19 07/31/19 History Past Med/Surg History Medical History No chronic diseases present Surgical History No significant past surgical history Family History Other No pertinent family history in first degree relatives Social History Preferred Language: Slovenian Communication Ability: Effective Plate Preparer Required: No Beliefs That Will Affect Care: None Current Living Situation: Alone Current Living Situation Comment: own room in dormitory Other Information That Helps Us Care for You: No Feels Safe at Home: Yes Safety Concerns: Feels Safe At This Time Smoking Status: Never smoker Hx Alcohol Use: Yes Alcohol type: beer Hx Substance Use: No Review of Systems Review of Systems: All systems reviewed & are unremarkable except as noted in HPI & below Constitutional: + fatigue, + malaise and + weakness; no fever Eyes: no blind spots and no diplopia Ear, Nose, Mouth, Throat: + dizziness; no ear pain and no tinnitus Respiratory: no cough and no dyspnea Cardiovascular: + lightheadedness and + syncope; no chest pain and no dyspnea Gastrointestinal: + nausea and + vomiting; no abdominal pain Musculoskeletal: no joint pain Integumentary: no rash Neurologic: + unsteadiness and + syncope Psychiatric: + anxiety Physical Exam Physical Exam: General: Well-appearing male, in no significant distress. HEENT: No scleral icterus, PERRLA, neck supple. Atraumatic. Cardiovascular: Regular rate and rhythm, no extra sounds. Pulmonary: Clear to auscultation bilaterally, normal work of breathing. Abdomen: Soft, nontender, nondistended, positive bowel sounds. Musculoskeletal: Atraumatic, no peripheral edema. Neurologic: Patient awake alert and oriented x 3, full strength in all 4 extremities. Cranial nerves 2 through 12 grossly intact. Skin: Warm, dry, no rash Results & Data Vital Signs (Past 12 Hours) Vital Signs Temp Pulse Resp BP Pulse Ox 07/31/19 20:40 91 H 24 100 07/31/19 20:39 92 H 15 130/63 100 07/31/19 20:30 92 H 16 100 07/31/19 20:20 91 H 18 100 07/31/19 20:10 93 H 21 100 07/31/19 20:00 87 18 100 07/31/19 19:50 85 15 100 07/31/19 19:40 92 H 16 100 07/31/19 19:30 92 H 19 100 07/31/19 19:26 102 H 20 100 07/31/19 19:10 98 H 25 H 100 07/31/19 19:09 86 17 100 07/31/19 19:08 93 H 17 133/67 100 07/31/19 18:17 92/72 L 07/31/19 18:15 102 H 17 115/64 07/31/19 18:14 83 18 123/56 L 07/31/19 18:10 73 18 100 07/31/19 18:01 75 19 100 07/31/19 18:00 81 21 113/55 L 100 07/31/19 17:50 89 15 07/31/19 17:41 81 20 07/31/19 17:31 83 13 100 07/31/19 17:30 83 15 109/50 L 100 07/31/19 17:20 85 18 100 07/31/19 17:14 85 19 100 07/31/19 17:00 91 H 14 117/55 L 100 07/31/19 16:41 98.2 F 212 H 12 112/68 100 Laboratory Results 07/31/19 07/31/19 07/31/19 Range/Units 19:40 18:25 17:01 WBC (4.8-10.8) K/uL RBC (4.7-6.1) M/uL Hgb (14.0-18.0) g/dL Hct (42-52) % MCV (80-100) fL MCH (25-34) pg MCHC (32-36) g/dL RDW Std Deviation (36.4-46.3) fL RDW Coeff of Monica (11.5-14.5) % Plt Count (130-400) K/uL MPV (7.4-10.4) fL Immature Gran % (Auto) % Neut % (Auto) % Lymph % (Auto) % [place] % (Auto) % Eos % (Auto) % Baso % (Auto) % Immature Gran # (Auto) (0.00-0.02) K/uL Neut # (Auto) (1.4-6.5) K/uL Lymph # (Auto) (1.2-3.4) K/uL [place] # (Auto) (0.11-0.59) K/uL Eos # (Auto) (0-0.5) K/uL Baso # (Auto) (0-0.2) K/uL Sodium (136-145) mmol/L Potassium (3.5-5.1) mmol/L Chloride (98-107) mmol/L Carbon Dioxide (21-32) mmol/L Anion Gap (3-11) BUN (7-18) mg/dl Creatinine (0.6-1.4) mg/dl Est Cr Clr Drug Dosing Est GFR ( Amer) Est GFR (Non-Af Amer) BUN/Creatinine Ratio (10-20) Glucose (70-99) mg/dl Calcium (8.5-10.1) mg/dl Magnesium 2.1 (1.8-2.4) mg/dl Total Bilirubin (0.2-1) mg/dl AST (15-37) U/L ALT (12-78) U/L Alkaline Phosphatase (45-117) U/L Total Creatine Kinase 64 (39-308) U/L CK-MB (CK-2) < 1.0 (0.5-3.6) ng/ml CK/CKMB % Calc TNP Troponin I < 0.015 (0-0.045) ng/ml Total Protein (6.4-8.2) gm/dl Albumin (3.4-5.0) gm/dl Globulin (2.5-4.0) gm/dl Albumin/Globulin Ratio (0.9-2) Lipase (73-393) U/L Urine Color Yellow Urine Appearance Clear (Clear) Urine pH 6.0 (4.5-7.5) Ur Specific [place] 1.027 (1.000-1.030) Urine Protein Negative (Negative) Urine Glucose (UA) Negative (Negative) Urine Ketones 4+ H (Negative) Urine Blood Negative (Negative) Urine Nitrite Negative (Negative) Urine Bilirubin Negative (Negative) Urine Urobilinogen Negative (Negative) Ur Leukocyte Esterase Negative (Negative) Blood Type A Positive Antibody Screen NEGATIVE 07/31/19 07/31/19 Range/Units 17:01 17:01 WBC 8.25 (4.8-10.8) K/uL RBC 3.81 L (4.7-6.1) M/uL Hgb 11.7 L (14.0-18.0) g/dL Hct 33.9 L (42-52) % MCV 89.0 (80-100) fL MCH 30.7 (25-34) pg MCHC 34.5 (32-36) g/dL RDW Std Deviation 39.9 (36.4-46.3) fL RDW Coeff of Monica 12.5 (11.5-14.5) % Plt Count 202 (130-400) K/uL MPV 11.1 H (7.4-10.4) fL Immature Gran % (Auto) 0.2 % Neut % (Auto) 83.5 % Lymph % (Auto) 12.1 % [place] % (Auto) 4.1 % Eos % (Auto) 0.0 % Baso % (Auto) 0.1 % Immature Gran # (Auto) 0.02 (0.00-0.02) K/uL Neut # (Auto) 6.88 H (1.4-6.5) K/uL Lymph # (Auto) 1.00 L (1.2-3.4) K/uL [place] # (Auto) 0.34 (0.11-0.59) K/uL Eos # (Auto) 0.00 (0-0.5) K/uL Baso # (Auto) 0.01 (0-0.2) K/uL Sodium 137 (136-145) mmol/L Potassium 3.8 (3.5-5.1) mmol/L Chloride 106 (98-107) mmol/L Carbon Dioxide 25 (21-32) mmol/L Anion Gap 6.0 (3-11) BUN 33 H (7-18) mg/dl Creatinine 0.73 (0.6-1.4) mg/dl Est Cr Clr Drug Dosing Not Reportable Est GFR ( Amer) > 150.0 Est GFR (Non-Af Amer) 131.7 BUN/Creatinine Ratio 45.1 H (10-20) Glucose 117 H (70-99) mg/dl Calcium 8.6 (8.5-10.1) mg/dl Magnesium (1.8-2.4) mg/dl Total Bilirubin 0.6 (0.2-1) mg/dl AST 15 (15-37) U/L ALT 33 (12-78) U/L Alkaline Phosphatase 65 (45-117) U/L Total Creatine Kinase (39-308) U/L CK-MB (CK-2) (0.5-3.6) ng/ml CK/CKMB % Calc Troponin I (0-0.045) ng/ml Total Protein 6.5 (6.4-8.2) gm/dl Albumin 3.9 (3.4-5.0) gm/dl Globulin 2.6 (2.5-4.0) gm/dl Albumin/Globulin Ratio 1.5 (0.9-2) Lipase 43 L (73-393) U/L Urine Color Urine Appearance (Clear) Urine pH (4.5-7.5) Ur Specific [place] (1.000-1.030) Urine Protein (Negative) Urine Glucose (UA) (Negative) Urine Ketones (Negative) Urine Blood (Negative) Urine Nitrite (Negative) Urine Bilirubin (Negative) Urine Urobilinogen (Negative) Ur Leukocyte Esterase (Negative) Blood Type Antibody Screen Diagnostic Findings CT angio neck with con CLINICAL HISTORY: Severe dizziness. NAUSEA, possible stroke. Possible dissection. COMPARISON STUDY: No previous studies for comparison. TECHNIQUE: CT angiography was performed from the aortic arch to the skull base. MIP imaging was performed. The patient was scanned in a dynamic helical fashion during intravenous administration of 118 cc of Optiray 320. A dose lowering technique was utilized adhering to the principles of ALARA. CT DOSE: Technique: CT angiogram of the carotid and vertebral arteries was obtained using intravenous contrast and 3-D reconstruction. NASCET criteria was utilized. Findings: There is an 18 mm prevascular soft tissue nodule, likely related to residual thymus. The right carotid revealed no evidence of aneurysm and no evidence of dissection. There is no evidence of hemodynamic significant stenosis. The left carotid revealed no evidence of hemodynamic significant stenosis. There is no evidence of aneurysm. There is no evidence of dissection. There is no evidence of hemodynamically significant vertebral stenosis. There is no evidence of vertebral dissection. IMPRESSION: No evidence of hemodynamically significant carotid or vertebral artery stenosis. No evidence of dissection. CT angio head w con CLINICAL HISTORY: 23 years-old Male with Pt c/o severe dizzinss. Acute severe dizziness with syncope and nausea COMPARISON STUDY: Head CT of same day TECHNIQUE: Following the IV administration of 118 cc of Optiray 320, CT angiogram of the brain was performed from the skull base to the vertex. Images are reviewed in the axial, sagittal, and coronal planes. 3-D MIPS images are created and assessed. IV contrast was administered without complication. All measurements were obtained according to NASCET criteria. A dose lowering technique was utilized adhering to the principles of ALARA. CT DOSE: 1201.56 mGy.cm FINDINGS: CT ANGIOGRAM OF THE BRAIN: The imaged bilateral internal carotid arteries are patent. The bilateral anterior and middle cerebral arteries are also patent. The vertebrobasilar system and posterior cerebral arteries are widely patent. There is no aneurysm, high-grade stenosis, or proximal branch occlusion identified. Dural sinuses appear patent. IMPRESSION: Unremarkable CTA of the head. CT head/brain wo con CLINICAL HISTORY: Dizziness. COMPARISON STUDY: No previous studies for comparison. TECHNIQUE: Axial CT of the brain is performed from the vertex to the skull base. IV contrast was not administered for this examination. A dose lowering technique was utilized adhering to the principles of ALARA. CT DOSE: FINDINGS: No intra or extra-axial mass lesions are visualized. There is no CT evidence of acute cortical infarction. There is no evidence of midline shift. There is no acute hemorrhage. No calvarial fractures are visualized. There is no evidence of pathologic ventricular dilatation. There is partial opacification of a left posterior ethmoid air cell. IMPRESSION: 1. Moderate inflammatory changes within the left ethmoid sinus. Otherwise normal noncontrast head CT. Code Status & VTE Plan Code Status code VTE Prophylaxis Plan VTE Prophylaxis will be ordered: Yes Supervising Physician Co-Signing Physician Notes Patient was seen and examined by me personally. I reviewed the chart, the orders and discussed the case in detail with Dr. Julia Velasquez MD . I read this H&P and agree with its contents to entirety. Resident Activity Tracking Resident Involvement: Resident Care Provided Care Provided: [facility]
[2019-07-31] MEDS ORDERED: ALUMINUM/MAGNESIUM SUSP 30 ML UDC PO PRN (22:52)
[2019-07-31] MEDS ORDERED: PROMETHAZINE HCL 25 MG TAB PO PRN (22:52)
[2019-07-31] MEDS ORDERED: MAGNESIUM HYDROXIDE SUSP 30 ML UDC PO PRN (22:52)
[2019-07-31] MEDS: SODIUM CHLORIDE 0.9% 1000ML 1,000 ML IV SCH (23:28)
[2019-08-01 01:14] LABS: Hematocrit (blood only) 24.4 % (42-52); Hemoglobin 8.4 g/dL (14.0-18.0)
[2019-08-01] MEDS ORDERED: SODIUM CHLORIDE 0.9% 250 ML IV PRN ×2 (01:27→09:45)
[2019-08-01] MEDS: PANTOprazole 40 MG in DEXTROSE 5% 100 ML IV SCH ×5 (01:34→22:31)
--- NOTE | 2019-08-01 04:22 | Billing Data ---
Coding Level of Care Code 57348 OBS Care - Level 3
[2019-08-01 07:22] LABS: Hematocrit (blood only) 23.6 % (42-52); Hemoglobin 8.1 g/dL (14.0-18.0)
[2019-08-01] MEDS: SODIUM CHLORIDE 0.9% 1000ML 1,000 ML IV SCH ×2 (07:23→20:50)
[2019-08-01] MEDS: ACETAMINOPHEN 325 MG TAB PO PRN ×3 (07:48→20:44)
[2019-08-01 07:56] LABS: Alanine Aminotransferase 23 U/L (12-78); Albumin Globulin Ratio 1.4 (0.9-2); Albumin Level 2.7 gm/dl (3.4-5.0); Alkaline Phosphatase 46 U/L (45-117); Aspartate Aminotransferase 10 U/L (15-37); BUN Creatinine Ratio 24.6 (10-20); Bilirubin,Total 0.5 mg/dl (0.2-1); Blood Urea Nitrogen 18 mg/dl (7-18); Calcium 8.2 mg/dl (8.5-10.1); Carbon Dioxide 25 mmol/L (21-32); Chloride 111 mmol/L (98-107); Creatinine Clr Calc Pharmacy 172.9 ml/min; Est GFR (African American) > 150.0; Est GFR (Non-African American) 133.2; Globulin 1.9 gm/dl (2.5-4.0); Glucose 85 mg/dl (70-99); Potassium 3.7 mmol/L (3.5-5.1); Sodium 141 mmol/L (136-145); Total Protein 4.6 gm/dl (6.4-8.2)
[2019-08-01] MEDS ORDERED: LACTATED RINGER'S 1,000 ML IV ONE (09:02)
[2019-08-01] MEDS: ESCITALOPRAM OXALATE 10 MG TAB PO SCH (09:20)
--- NOTE | 2019-08-01 09:53 | Hospitalist Progress Note ---
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 -Monitor H and H q6h Hemoglobin dropped to 8 from 11. Hemoglobin was likely hemo concentrated --Given that patient is having symptomatic anemia, will transfuse one unit of blood. BP has been lower but is still above 90 systolic. -will remain NPO and will consult GI. -Ordered IVF. -IV protonix Dizziness/nausea/vomiting/collapse/weakness This is likey secondary to his first problem. Patient reports having episodes of tachycardia as an outpatient but has not been diagnosed with POTS. will transfer to med/surg with tele. -Phenergan for nausea/vomiting (avoiding zofran in light of lexapro use) -Has been undergoing investigation as outpatient: thought possible a version of POTS, is due for cardiology appointment in next month -Mother notes family history of HOCM: will order echo for morning -CT Head, CTAngio head/neck normal DVTP: SCDs in light of GI bleed; low risk for DVT Code: FULL Dispo: admit to med/surg (2) NSAID long-term use: Likely contributed to problem 1. Patient likely getting rebound/overuse headaches from this as well. Recommended to cut back once he is discharge. He should cut back from coffee once he completes with finals. (3) Dizziness: likely multifactorial (4) Anxiety and depression: Anxiety -Cont lexapro 15 (5) Nausea and vomiting: (6) Collapse: syncope from problem number 1 Subjective This is a pleasant 23 yo male who reports having 2 syncopal episodes prior to arriving at the hospital. He states that he takes 600 mg of motrin 3 times a day for headaches for the past 3 months.. And drinks 2 cups a day of coffee for the past 3 months. He currently states that he feels more tired today, and "lethargic". He states that he felt dizzy when getting out of bed. He states he only had one dark bowel movement overnight. His mother is at bedside. Review of Systems Review of Systems: All systems reviewed & are unremarkable except as noted in HPI & below Physical Exam Physical Exam: General: Well-appearing male, in no significant distress. HEENT: No scleral icterus, PERRLA, neck supple. Atraumatic. Cardiovascular: Regular rate and rhythm, no extra sounds. Pulmonary: Clear to auscultation bilaterally, normal work of breathing. Abdomen: Soft, nontender, nondistended, positive bowel sounds. Musculoskeletal: Atraumatic, no peripheral edema. Neurologic: Patient awake alert and oriented x 3, full strength in all 4 extremities. Cranial nerves 2 through 12 grossly intact. Skin: Warm, dry, no rash Results & Data Vital Signs (Past 12 Hours) Vital Signs Temp Pulse Pulse Resp BP BP Pulse Ox 08/01/19 08:45 96/64 L 08/01/19 07:39 36.8 C 71 18 92/53 L 99 07/31/19 23:15 37.2 C 16 124/66 98 07/31/19 22:01 102 H 22 100 07/31/19 22:00 88 20 121/46 L 100 PG Care Time/CCT Total # of Minutes Spent Total Time Spent with Patient: Total time spent is greater than 50% in coordination of care (as documented) at patient's floor/unit and/or counseling patient:
[2019-08-01] MEDS ORDERED: DiphenhydrAMINE HCL 50 MG/ML VIAL IV STA (11:57)
[2019-08-01] MEDS ORDERED: PROCHLORPERAZINE 10 MG in SYRINGE 8 ML IV ONE (12:00)
[2019-08-01 13:12] LABS: Hemoglobin 9.2 g/dL (14.0-18.0)
--- NOTE | 2019-08-01 14:18 | Anesthesiology Consultation ---
Date of Service August 01, 2019 Assessment & Plan (1) Encounter for pre-operative examination: Chart Review Chart Review: Acceptable Risk for Surgery and Patient NOT seen in Pre Admission Testing Consults Requested none History Surgery Operation Date: 08/01/19 16:00 Proposed Procedures p Esophagogastroduodenoscopy Dr Jennifer Rodriguez Height/Weight Height: 6 ft 1 in Weight: 74.9 kg Allergies Allergy/AdvReac Type Severity Reaction Status Date / Time sulfamethoxazole Allergy Unknown Unverified 07/31/19 19:54 Medications Home Medications Medication Instructions Recorded Confirmed Last Taken Unknown Skin Cream 1 applic TOPICAL DAILY 04/18/19 07/31/19 Unknown Unknown Topical Gel 1 applic TOPICAL DAILY 04/18/19 07/31/19 Unknown minocycline 100 mg PO BID 04/18/19 07/31/19 Unknown cholecalciferol (vitamin D3) 1,000 unit PO DAILY 07/31/19 07/31/19 Unknown [Vitamin D3] escitalopram oxalate [Lexapro] 15 mg PO DAILY 07/31/19 07/31/19 Unknown ibuprofen [Motrin IB] 600 - 800 mg PO Q6H PRN 07/31/19 07/31/19 Unknown Active Medications Generic Name Dose Route Start Last Admin Trade Name Freq PRN Reason Stop Dose Admin Acetaminophen 650 mg 07/31/19 22:52 08/01/19 11:49 Tylenol PO 08/30/19 22:51 650 mg Q4H PRN Administration pain/fever Escitalopram Oxalate 15 mg 08/01/19 09:00 08/01/19 09:20 Lexapro Tab PO 08/31/19 08:59 15 mg DAILY CONY Administration Pantoprazole Sodium 40 mg/ 100 mls @ 20 mls/hr 07/31/19 19:50 08/01/19 13:57 Dextrose IV 08/30/19 19:49 0 mls/hr Q5H CONY Infusion Sodium Chloride 1,000 mls @ 125 mls/hr 07/31/19 22:52 08/01/19 10:08 Nss 1000ml IV 08/30/19 22:51 0 mls/hr .Q8H CONY Infusion Ioversol 118 ml 07/31/19 18:41 07/31/19 18:41 Optiray 320 125ml IV 08/04/19 18:40 118 ml ONCE PRN Administration Interaction Checking Promethazine HCl 25 mg 07/31/19 22:52 08/01/19 11:10 Phenergan PO 08/30/19 22:51 25 mg Q6H PRN Administration Nausea And Vomiting NPO Date Last Intake of Fluids: 07/31/19 Time Last Intake of Fluids: 20:00 Date Last Intake of Solids: 07/31/19 Time Last Intake of Solids: 20:00 Past Medical History Medical History No chronic diseases present Past Family History Family History Other No pertinent family history in first degree relatives Past Surgical History Surgical History No significant past surgical history Social History Smoking Status: Never smoker Hx Alcohol Use: Yes Alcohol type: beer alcohol intake frequency: a few times a month Hx Substance Use: No Physical Exam Vital Signs Last Vital Signs Temp 36.7 C 08/01/19 14:06 Pulse 117 H 08/01/19 14:06 Resp 20 08/01/19 14:06 BP 111/76 08/01/19 14:06 Pulse Ox 100 08/01/19 14:06 Testing Laboratory Results 08/01/19 12:59 08/01/19 06:53 Urine Color Yellow 07/31/19 18:25 Urine Appearance Clear (Clear) 07/31/19 18:25 Urine pH 6.0 (4.5-7.5) 07/31/19 18:25 Ur Specific [place] 1.027 (1.000-1.030) 07/31/19 18:25 Urine Protein Negative (Negative) 07/31/19 18:25 Urine Glucose (UA) Negative (Negative) 07/31/19 18:25 Urine Ketones 4+ (Negative) H 07/31/19 18:25 Urine Nitrite Negative (Negative) 07/31/19 18:25 Ur Leukocyte Esterase Negative (Negative) 07/31/19 18:25 Blood Type A Positive 07/31/19 19:40 Antibody Screen NEGATIVE 07/31/19 19:40
--- NOTE | 2019-08-01 14:18 | History & Physical Report ---
Date of Service August 01, 2019 History of Present Illness Chief Complaint: anemia, melena Primary Care Provider: [facility] Allergies Allergy/AdvReac Type Severity Reaction Status Date / Time sulfamethoxazole Allergy Unknown Unverified 07/31/19 19:54 Home Medications Home Medications Medication Instructions Recorded Confirmed Type Unknown Skin Cream 1 applic TOPICAL DAILY 04/18/19 07/31/19 History Unknown Topical Gel 1 applic TOPICAL DAILY 04/18/19 07/31/19 History minocycline 100 mg PO BID 04/18/19 07/31/19 History cholecalciferol (vitamin D3) 1,000 unit PO DAILY 07/31/19 07/31/19 History [Vitamin D3] escitalopram oxalate [Lexapro] 15 mg PO DAILY 07/31/19 07/31/19 History ibuprofen [Motrin IB] 600 - 800 mg PO Q6H PRN 07/31/19 07/31/19 History Past Med/Surg History Medical History No chronic diseases present Surgical History No significant past surgical history Family History Other No pertinent family history in first degree relatives Social History Preferred Language: Frisian Communication Ability: Effective Bus Assistant Required: No Beliefs That Will Affect Care: None Current Living Situation: Alone Current Living Situation Comment: own room in dormitory Other Information That Helps Us Care for You: No Feels Safe at Home: Yes Safety Concerns: Feels Safe At This Time Smoking Status: Never smoker Hx Alcohol Use: Yes Alcohol type: beer Hx Substance Use: No Physical Exam Constitutional: well developed and well nourished Respiratory: normal respiratory effort Cardiovascular: Rate/Rhythm: regular rate and regular rhythm Gastrointestinal (Abdomen): Percussion/Palpation: abdomen soft Results & Data Vital Signs (Past 12 Hours) Vital Signs Temp Pulse Pulse Resp BP BP Pulse Ox 08/01/19 14:06 36.7 C 117 H 20 111/76 100 08/01/19 11:08 37.5 C 82 18 98/57 L 100 08/01/19 11:05 36.8 C 78 20 97/62 L 100 08/01/19 10:23 36.9 C 83 18 96/55 L 100 08/01/19 10:20 37 C 77 18 99/47 L 100 08/01/19 10:06 36.7 C 78 16 105/60 08/01/19 08:45 96/64 L 08/01/19 07:39 36.8 C 71 18 92/53 L 99 Code Status & VTE Plan VTE Prophylaxis Plan VTE Prophylaxis will be ordered: Yes
[2019-08-01] MEDS ORDERED: ePHEDrine sulfate 50 MG/ML AMP IV PRN (14:20)
[2019-08-01] MEDS ORDERED: ATROPINE SULFATE 0.1 MG/ML 10ML SYR IV PRN (14:20)
[2019-08-01] MEDS ORDERED: SODIUM CHLORIDE 0.9% 1000ML 1,000 ML IV SCH (14:30)
[2019-08-01] MEDS ORDERED: PROPOFOL IV EMULSION 10 MG/ML 20 ML VIAL IV ONE ×2 (14:31→14:36)
[2019-08-01] MEDS ORDERED: LIDOCAINE HCL 2% 2 ML VIAL/AMP(20MG/ML) INFIL ONE (14:31)
--- NOTE | 2019-08-01 14:39 | GI REPORT ---
Patient Name: Manan Hernandez Procedure Date: 08/01/2019 2:12 PM Date of : 1995 Admit Type: Inpatient Age: 23 Gender: Male Attending MD: Costa Rodriguez MD Procedure: Upper GI endoscopy Providers: Costa Rodriguez MD Referring MD: Piyush Dominguez M.d. Indications: Acute post hemorrhagic anemia, Melena Medicines: Propofol total dose 440 mg IV, Lidocaine 40 mg IV Complications: No immediate complications. Estimated Blood Loss: Estimated blood loss: none. Procedure: Pre-Anesthesia Assessment: - Prior to the procedure, a History and Physical was performed, and patient medications, allergies and sensitivities were reviewed. The patient's tolerance of previous anesthesia was reviewed. - The risks and benefits of the procedure and the sedation options and risks were discussed with the patient. All questions were answered and informed consent was obtained. After obtaining informed consent, the endoscope was passed under direct vision. Throughout the procedure, the patient's blood pressure, pulse, and oxygen saturations were monitored continuously. The Endoscope was introduced through the mouth, and advanced to the fourth part of duodenum. The upper GI endoscopy was accomplished without difficulty. The patient tolerated the procedure well. 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 The Z-line was variable and was found 45 cm from the incisors. One non-bleeding superficial gastric ulcer with no stigmata of bleeding was found in the gastric antrum. The lesion was 4 mm in largest dimension. Estimated blood loss: none. The examined duodenum was normal. 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 - Z-line variable, 45 cm from the incisors. - Non-bleeding gastric ulcer with no stigmata of bleeding. - Normal examined duodenum. - No specimens collected. Recommendation: - [facility]. - Perform a colonoscopy tomorrow. Costa Rodriguez M.D. Costa Rodriguez MD 08/01/2019 2:39:31 PM This report has been signed electronically. Note Initiated On: 08/01/2019 2:12 PM Number of Addenda: 0 I attest to the content of the Intraoperative Record and orders documented therein, exceptions below {[id number]}
--- NOTE | 2019-08-01 15:26 | Anesthesiology Progress Note ---
Date of Service August 01, 2019 Anesthesia Post Procedure Vital Signs Vital Signs: Temp Pulse Pulse Resp BP BP Pulse Ox 08/01/19 15:10 74 16 118/63 100 08/01/19 14:55 76 14 98/39 L 98 08/01/19 14:40 82 16 92/38 L 100 08/01/19 14:06 36.7 C 117 H 20 111/76 100 08/01/19 11:08 37.5 C 82 18 98/57 L 100 08/01/19 11:05 36.8 C 78 20 97/62 L 100 08/01/19 10:23 36.9 C 83 18 96/55 L 100 08/01/19 10:20 37 C 77 18 99/47 L 100 08/01/19 10:06 36.7 C 78 16 105/60 08/01/19 08:45 96/64 L 08/01/19 07:39 36.8 C 71 18 92/53 L 99 07/31/19 23:15 37.2 C 16 124/66 98 07/31/19 22:01 102 H 22 100 07/31/19 22:00 88 20 121/46 L 100 07/31/19 21:50 92 H 24 100 07/31/19 21:40 89 16 100 07/31/19 21:31 93 H 17 100 07/31/19 21:30 103 H 16 116/43 L 100 07/31/19 21:20 102 H 20 100 07/31/19 21:10 97 H 16 100 07/31/19 21:01 105 H 20 100 07/31/19 21:00 101 H 21 111/52 L 100 07/31/19 20:50 92 H 18 100 07/31/19 20:40 91 H 24 100 07/31/19 20:39 92 H 15 130/63 100 07/31/19 20:30 92 H 16 100 07/31/19 20:20 91 H 18 100 07/31/19 20:10 93 H 21 100 07/31/19 20:00 87 18 100 07/31/19 19:50 85 15 100 07/31/19 19:40 92 H 16 100 07/31/19 19:30 92 H 19 100 07/31/19 19:26 102 H 20 100 07/31/19 19:10 98 H 25 H 100 07/31/19 19:09 86 17 100 07/31/19 19:08 93 H 17 133/67 100 07/31/19 18:17 92/72 L 07/31/19 18:15 102 H 17 115/64 07/31/19 18:14 83 18 123/56 L 07/31/19 18:10 73 18 100 07/31/19 18:01 75 19 100 07/31/19 18:00 81 21 113/55 L 100 07/31/19 17:50 89 15 07/31/19 17:41 81 20 07/31/19 17:31 83 13 100 07/31/19 17:30 83 15 109/50 L 100 07/31/19 17:20 85 18 100 07/31/19 17:14 85 19 100 07/31/19 17:00 91 H 14 117/55 L 100 07/31/19 16:41 36.8 C 212 H 12 112/68 100 Pain Intensity Head: Pain Intensity: 8 Transfer of Care Handoff Completed per policy Notes Mental Status: alert / awake / arousable Patient Amnestic to Procedure: Yes Nausea / Vomiting: adequately controlled Pain: adequately controlled Airway Patency, RR, SpO2: stable & adequate BP & HR: stable & adequate Hydration State: stable & adequate Anesthetic Complications: no major complications apparent and Pt Satisfied with anesthetic care
--- NOTE | 2019-08-01 15:32 | Consultation Report ---
DATE OF CONSULTATION: 08/01/2019 REASON FOR EVALUATION: Anemia and melena. 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 He has been taking 3 Advil 3 times a day for the entire fall semester. He has not had any abdominal pain, but he does say that he is getting dizziness and weakness which is being evaluated by his outpatient primary care physicians. The patient states that he collapsed in the bathroom and was found by his roommate. He was brought to the [facility] and then sent to the Emergency Room where he was found to have a hemoglobin of 11.7, which has dropped to 9.2 overnight. He had a melenic stool while here and dropped his blood pressure, and was transferred to the progressive care unit from the regular medical floor and resuscitated with IV fluids and IV propranolol. GI consultation has been requested for evaluation of his anemia and melena. PAST MEDICAL HISTORY: Remarkable for anxiety. MEDICATIONS: Include vitamin D, Lexapro and ibuprofen 600-800 mg 3 times a day. ALLERGIES: SULFAMETHOXAZOLE. FAMILY HISTORY: Negative for any significant illnesses. SOCIAL HISTORY: The patient is a [employer] student, lives in a dormitory. Feels safe. Does not smoke, drinks beer. REVIEW OF SYSTEMS: Positive for some nausea and unsteadiness and anxiety. PHYSICAL EXAMINATION: GENERAL: The patient appears in no acute distress. He does have a little bit of periorbital edema from IV fluids. VITAL SIGNS: Blood pressure is 130/63, pulse 92, O2 saturations 100% on room air. ABDOMEN: Soft and there are no masses, tenderness, or hepatosplenomegaly. The patient underwent an EGD today after informed consent, the patient was found to have 2 small gastric inlet patches at the cricopharyngeus, which are benign and inconsequential. The remainder of the esophagus was normal. In the stomach, he had a 4-millimeter superficial ulcer in the gastric antrum with no stigmata of bleeding. There was no blood or old blood in the stomach or anywhere during the exam. The duodenum was inspected all the way into the fourth portion, and there were no abnormalities found. IMPRESSION: The patient has anemia and heme positive stool and melena. He has a small superficial gastric ulcer from the ibuprofen that he has been taking but it is unlikely that this is the sole source of his blood loss. It is superficial and does not show any stigmata of recent hemorrhage. At this point, I plan on continuing the Protonix and scheduling him for a colonoscopy tomorrow for further evaluation.
[2019-08-01] MEDS: LAVAGE SOLUTION 4000ML PO SCH (18:00)
[2019-08-01 19:13] LABS: Hematocrit (blood only) 32.2 % (42-52); Hemoglobin 11.1 g/dL (14.0-18.0)
[2019-08-02] MEDS: PANTOprazole 40 MG in DEXTROSE 5% 100 ML IV SCH ×2 (03:14→07:52)
[2019-08-02] MEDS: SODIUM CHLORIDE 0.9% 1000ML 1,000 ML IV SCH (04:54)
[2019-08-02] MEDS: ACETAMINOPHEN 325 MG TAB PO PRN (07:49)
[2019-08-02] MEDS: LAVAGE SOLUTION 4000ML PO SCH (07:50)
[2019-08-02] MEDS: ESCITALOPRAM OXALATE 10 MG TAB PO SCH (08:54)
[2019-08-02] MEDS ORDERED: MIDAZOLAM HCL 1 MG/ML 2ML VIAL ONE (11:41)
--- NOTE | 2019-08-02 11:50 | Anesthesiology Consultation ---
Date of Service August 02, 2019 Assessment & Plan (1) Encounter for pre-operative examination: Chart Review Chart Review: Acceptable Risk for Surgery and Patient NOT seen in Pre Admission Testing Consults Requested none History Surgery Operation Date: 08/01/19 16:00 Proposed Procedures p Esophagogastroduodenoscopy Dr Jennifer Rodriguez Operation Date: 08/02/19 16:30 Proposed Procedures p Colonoscopy Dr Jennifer Rodriguez Height/Weight Height: 6 ft 1 in Weight: 74.2 kg Allergies Allergy/AdvReac Type Severity Reaction Status Date / Time sulfamethoxazole Allergy Unknown Unverified 07/31/19 19:54 Medications Home Medications Medication Instructions Recorded Confirmed Last Taken Unknown Skin Cream 1 applic TOPICAL DAILY 04/18/19 07/31/19 Unknown Unknown Topical Gel 1 applic TOPICAL DAILY 04/18/19 07/31/19 Unknown minocycline 100 mg PO BID 04/18/19 07/31/19 Unknown cholecalciferol (vitamin D3) 1,000 unit PO DAILY 07/31/19 07/31/19 Unknown [Vitamin D3] escitalopram oxalate [Lexapro] 15 mg PO DAILY 07/31/19 07/31/19 Unknown ibuprofen [Motrin IB] 600 - 800 mg PO Q6H PRN 07/31/19 07/31/19 Unknown Active Medications Generic Name Dose Route Start Last Admin Trade Name Freq PRN Reason Stop Dose Admin Acetaminophen 650 mg 07/31/19 22:52 08/02/19 07:49 Tylenol PO 08/30/19 22:51 650 mg Q4H PRN Administration pain/fever Escitalopram Oxalate 15 mg 08/01/19 09:00 08/02/19 08:54 Lexapro Tab PO 08/31/19 08:59 15 mg DAILY CONY Administration Pantoprazole Sodium 40 mg/ 100 mls @ 20 mls/hr 07/31/19 19:50 08/02/19 11:17 Dextrose IV 08/30/19 19:49 0 mls/hr Q5H CONY Infusion Sodium Chloride 1,000 mls @ 125 mls/hr 07/31/19 22:52 08/02/19 11:16 Nss 1000ml IV 08/30/19 22:51 0 mls/hr .Q8H CONY Infusion Sodium Chloride 1,000 mls @ 15 mls/hr 08/01/19 14:30 12/05/19 15:58 Nss 1000ml IV 08/02/19 14:29 Not Given .Q24H CONY Ioversol 118 ml 07/31/19 18:41 07/31/19 18:41 Optiray 320 125ml IV 08/04/19 18:40 118 ml ONCE PRN Administration Interaction Checking Promethazine HCl 25 mg 07/31/19 22:52 08/01/19 11:10 Phenergan PO 08/30/19 22:51 25 mg Q6H PRN Administration Nausea And Vomiting NPO Date Last Intake of Fluids: 08/02/19 Time Last Intake of Fluids: 09:00 Last Intake of Fluids Comment: Bowel prep Date Last Intake of Solids: 07/31/19 Time Last Intake of Solids: 20:00 Past Medical History Medical History No chronic diseases present Past Family History Family History Other No pertinent family history in first degree relatives Past Surgical History Surgical History No significant past surgical history Social History Smoking Status: Never smoker Hx Alcohol Use: Yes Alcohol type: beer alcohol intake frequency: a few times a month Hx Substance Use: No Physical Exam Vital Signs Last Vital Signs Temp 37 C 08/02/19 11:28 Pulse 99 H 08/02/19 11:28 Resp 12 08/02/19 11:28 BP 132/66 08/02/19 11:28 Pulse Ox 100 08/02/19 11:28 Testing Laboratory Results 08/01/19 18:54 08/01/19 06:53 Urine Color Yellow 07/31/19 18:25 Urine Appearance Clear (Clear) 07/31/19 18:25 Urine pH 6.0 (4.5-7.5) 07/31/19 18:25 Ur Specific [place] 1.027 (1.000-1.030) 07/31/19 18:25 Urine Protein Negative (Negative) 07/31/19 18:25 Urine Glucose (UA) Negative (Negative) 07/31/19 18:25 Urine Ketones 4+ (Negative) H 07/31/19 18:25 Urine Nitrite Negative (Negative) 07/31/19 18:25 Ur Leukocyte Esterase Negative (Negative) 07/31/19 18:25 Blood Type A Positive 07/31/19 19:40 Antibody Screen NEGATIVE 07/31/19 19:40
[2019-08-02] MEDS ORDERED: ePHEDrine sulfate 50 MG/ML AMP IV PRN (11:51)
[2019-08-02] MEDS ORDERED: ATROPINE SULFATE 0.1 MG/ML 10ML SYR IV PRN (11:51)
--- NOTE | 2019-08-02 12:10 | History & Physical Report ---
Date of Service August 02, 2019 History of Present Illness Chief Complaint: anemia, melena Primary Care Provider: [facility] For [facility] Allergies Allergy/AdvReac Type Severity Reaction Status Date / Time sulfamethoxazole Allergy Unknown Unverified 07/31/19 19:54 Home Medications Home Medications Medication Instructions Recorded Confirmed Type Unknown Skin Cream 1 applic TOPICAL DAILY 04/18/19 07/31/19 History Unknown Topical Gel 1 applic TOPICAL DAILY 04/18/19 07/31/19 History minocycline 100 mg PO BID 04/18/19 07/31/19 History cholecalciferol (vitamin D3) 1,000 unit PO DAILY 07/31/19 07/31/19 History [Vitamin D3] escitalopram oxalate [Lexapro] 15 mg PO DAILY 07/31/19 07/31/19 History ibuprofen [Motrin IB] 600 - 800 mg PO Q6H PRN 07/31/19 07/31/19 History Past Med/Surg History Medical History No chronic diseases present Surgical History No significant past surgical history Family History Other No pertinent family history in first degree relatives Social History Preferred Language: Russian Communication Ability: Effective Feeder Loader Required: No Beliefs That Will Affect Care: None Current Living Situation: Alone Current Living Situation Comment: own room in dormitory Other Information That Helps Us Care for You: No Feels Safe at Home: Yes Safety Concerns: Feels Safe At This Time Smoking Status: Never smoker Hx Alcohol Use: Yes Alcohol type: beer Hx Substance Use: No Physical Exam Constitutional: well developed and well nourished Respiratory: normal respiratory effort Cardiovascular: Rate/Rhythm: regular rate and regular rhythm Gastrointestinal (Abdomen): Percussion/Palpation: abdomen soft Results & Data Vital Signs (Past 12 Hours) Vital Signs Temp Pulse Pulse Resp BP Pulse Ox 08/02/19 11:28 37 C 99 H 12 132/66 100 08/02/19 07:11 73 08/02/19 07:10 37.0 C 85 18 109/61 99 08/02/19 04:10 85 08/02/19 04:08 36.9 C 91 H 19 109/70 99 Code Status & VTE Plan VTE Prophylaxis Plan VTE Prophylaxis will be ordered: Yes
--- NOTE | 2019-08-02 12:35 | GI REPORT ---
Patient Name: Manan Hernandez Procedure Date: 08/02/2019 11:47 AM Date of : 1995 Admit Type: Inpatient Age: 23 Gender: Male Attending MD: Costa Rodriguez MD Procedure: Colonoscopy Providers: Costa Rodriguez MD Referring MD: Piyush Dominguez M.d. Indications: Melena, Acute post hemorrhagic anemia Medicines: Midazolam 2 mg IV, Propofol total dose 200 mg IV, Lidocaine 40 mg IV Complications: No immediate complications. Estimated Blood Loss: Estimated blood loss: none. Procedure: Pre-Anesthesia Assessment: - Prior to the procedure, a History and Physical was performed, and patient medications, allergies and sensitivities were reviewed. The patient's tolerance of previous anesthesia was reviewed. - The risks and benefits of the procedure and the sedation options and risks were discussed with the patient. All questions were answered and informed consent was obtained. After I obtained informed consent, the scope was passed under direct vision. Throughout the procedure, the patient's blood pressure, pulse, and oxygen saturations were monitored continuously. The Colonoscope was introduced through the anus and advanced to the terminal ileum. The colonoscopy was performed without difficulty. The patient tolerated the procedure well. The quality of the bowel preparation was excellent. Findings: The terminal ileum appeared normal. The entire examined colon appeared normal. Impression: - The examined portion of the ileum was normal. - The entire examined colon is normal. - No specimens collected. Recommendation: - [facility]. Costa Rodriguez M.D. Costa Rodriguez MD 08/02/2019 12:34:33 PM This report has been signed electronically. Note Initiated On: 08/02/2019 11:47 AM Number of Addenda: 0 I attest to the content of the Intraoperative Record and orders documented therein, exceptions below {[id number]}
--- NOTE | 2019-08-02 13:00 | Progress Note ---
DATE: 08/02/2019 SUBJECTIVE: The patient had no obvious further bleeding overnight and completed his bowel prep and presented for colonoscopy today for evaluation of his melena and anemia. Yesterday, he had a small superficial gastric ulcer discovered probably related to the ibuprofen that he has been taking. His colonoscopy was completed through the terminal ileum. The prep was excellent. There was no blood anywhere in the bowel and there was no source of blood loss found anywhere. The colon and ileum were completely normal. PHYSICAL EXAMINATION: His blood pressure is 132/66, pulse 99, respirations 12, O2 saturation on room air is 100%. Today his hemoglobin is 11.1 following 1 unit of blood transfusions. IMPRESSION: The patient has no source of blood loss found in the colon. It is possible that the ulcer in his stomach was the original source of bleeding and I would recommend that his diet be advanced and he stay on proton pump inhibitor for 2 months and avoid all nonsteroidals going forward. If he has further anemia or worsening symptoms, we can do an outpatient video capsule.
[2019-08-02] MEDS ORDERED: SODIUM CHLORIDE 0.9% 1000ML 1,000 ML IV SCH (13:30)
--- NOTE | 2019-08-02 15:04 | Anesthesiology Progress Note ---
Date of Service August 02, 2019 Anesthesia Post Procedure Vital Signs Vital Signs: Temp Pulse Pulse Resp BP Pulse Ox 08/02/19 13:04 90 16 127/71 100 08/02/19 12:48 89 16 101/43 L 98 08/02/19 12:33 82 12 116/53 L 100 08/02/19 11:28 37 C 99 H 12 132/66 100 08/02/19 07:11 73 08/02/19 07:10 37.0 C 85 18 109/61 99 08/02/19 04:10 85 08/02/19 04:08 36.9 C 91 H 19 109/70 99 08/01/19 23:47 37 C 107 H 18 121/70 98 08/01/19 19:20 36.8 C 100 H 18 128/78 97 08/01/19 15:45 37.0 C 98 H 17 103/60 100 08/01/19 15:10 74 16 118/63 100 Pain Intensity Head: Pain Intensity: 8 Transfer of Care Handoff Completed per policy Notes Mental Status: alert / awake / arousable Patient Amnestic to Procedure: Yes Nausea / Vomiting: adequately controlled Pain: adequately controlled Airway Patency, RR, SpO2: stable & adequate BP & HR: stable & adequate Hydration State: stable & adequate Anesthetic Complications: no major complications apparent and Pt Satisfied with anesthetic care
--- NOTE | 2019-08-02 22:41 | Hospitalist Progress Note ---
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 -Monitor H and H q6h Hemoglobin dropped to 8 from 11. Hemoglobin was likely hemo concentrated Imrpoved to 9 after transfusion. This has been stready. Uppare and lower GI scope were negative. Will be on oral PPI daily for 2 weeks. recommend no motrin. will resume diet. Dizziness/nausea/vomiting/collapse/weakness This is likey secondary to his first problem. Patient reports having episodes of tachycardia as an outpatient but has not been diagnosed with POTS. will transfer to med/surg with tele. echo was negative. dizziness has improved. will monitor. DVTP: SCDs in light of GI bleed; low risk for DVT Code: FULL (2) NSAID long-term use: Likely contributed to problem 1. Patient likely getting rebound/overuse headaches from this as well. Recommended to cut back once he is discharge. He should cut back from coffee once he completes with finals. (3) Dizziness: likely multifactorial (4) Anxiety and depression: Anxiety -Cont lexapro 15 (5) Nausea and vomiting: (6) Collapse: syncope from problem number 1 Subjective Patient reports feeling better. he did have an episode of being dizzy when he ambulated from his bed to the bathroom. It was shortlived. Aside from this, patient has no other questions. Review of Systems Review of Systems: All systems reviewed & are unremarkable except as noted in HPI & below Physical Exam Physical Exam: General: Well-appearing male, in no significant distress. HEENT: No scleral icterus, PERRLA, neck supple. Atraumatic. Cardiovascular: Regular rate and rhythm, no extra sounds. Pulmonary: Clear to auscultation bilaterally, normal work of breathing. Abdomen: Soft, nontender, nondistended, positive bowel sounds. Musculoskeletal: Atraumatic, no peripheral edema. Neurologic: Patient awake alert and oriented x 3, full strength in all 4 extremities. Cranial nerves 2 through 12 grossly intact. Skin: Warm, dry, no rash Results & Data Vital Signs (Past 12 Hours) Vital Signs Temp Pulse Pulse Resp BP Pulse Ox 08/02/19 19:13 37.1 C 81 20 138/75 97 08/02/19 18:34 87 08/02/19 15:02 37.2 C 96 H 20 144/67 H 100 08/02/19 13:04 90 16 127/71 100 08/02/19 12:48 89 16 101/43 L 98 08/02/19 12:33 82 12 116/53 L 100 08/02/19 11:28 37 C 99 H 12 132/66 100 PG Care Time/CCT Total # of Minutes Spent Total Time Spent with Patient: Total time spent is greater than 50% in coordination of care (as documented) at patient's floor/unit and/or counseling patient:
[2019-08-03 08:03] LABS: Hematocrit (blood only) 28.1 % (42-52); Hemoglobin 9.6 g/dL (14.0-18.0); Mean Corpuscular Hemoglobin 30.5 pg (25-34); Mean Corpuscular Hgb Conc 34.2 g/dL (32-36); Mean Corpuscular Volume 89.2 fL (80-100); Mean Platelet Volume 10.4 fL (7.4-10.4); Platelet Count 174 K/uL (130-400); RDW Coefficient of Variation 13.1 % (11.5-14.5); RDW Standard Deviation 41.5 fL (36.4-46.3); Red Blood Count 3.15 M/uL (4.7-6.1); White Blood Count 3.24 K/uL (4.8-10.8)
[2019-08-03 08:36] LABS: BUN Creatinine Ratio 10.2 (10-20); Calcium 9.2 mg/dl (8.5-10.1); Creatinine Clr Calc Pharmacy 149.8 ml/min; Est GFR (African American) 147.7; Est GFR (Non-African American) 127.5; Potassium 4.2 mmol/L (3.5-5.1)
[2019-08-03] MEDS ORDERED: PANTOprazole 40 MG TAB PO SCH (09:00)
[2019-08-03] MEDS: ESCITALOPRAM OXALATE 10 MG TAB PO SCH (09:03)
[2019-08-03] MEDS ORDERED: FLUDROCORTISONE ACETATE 0.1 MG TAB PO SCH (09:45)
--- NOTE | 2019-08-03 10:16 | Anesthesiology Progress Note ---
Date of Service August 03, 2019 Anesthesia Post Procedure Vital Signs Vital Signs: Temp Pulse Pulse Resp BP Pulse Ox 08/03/19 07:04 68 08/03/19 06:51 36.6 C 103 H 15 99/62 L 100 08/03/19 04:36 36.7 C 97 H 14 113/74 100 08/03/19 01:21 94 H 08/02/19 23:49 36.9 C 88 15 113/71 98 08/02/19 19:13 37.1 C 81 20 138/75 97 08/02/19 18:34 87 08/02/19 15:02 37.2 C 96 H 20 144/67 H 100 08/02/19 13:04 90 16 127/71 100 08/02/19 12:48 89 16 101/43 L 98 08/02/19 12:33 82 12 116/53 L 100 08/02/19 11:28 37 C 99 H 12 132/66 100 Notes Mental Status: alert / awake / arousable Patient Amnestic to Procedure: Yes Nausea / Vomiting: adequately controlled Pain: adequately controlled Airway Patency, RR, SpO2: stable & adequate BP & HR: stable & adequate Hydration State: stable & adequate Anesthetic Complications: no major complications apparent and Pt Satisfied with anesthetic care
[2019-08-03] MEDS ORDERED: SODIUM CHLORIDE 1 GM TABLET PO STA (10:27)
--- NOTE | 2019-08-05 10:46 | XCELERA ---
[id number]
--- NOTE | 2019-08-06 20:31 | Discharge Summary ---
Date of Service August 03, 2019 Admission HPI Per Admitting Provider Patient is a pleasant 23-year-old male [employer] [facility] [employer] student with past medical history of anxiety. He presents to the ER with an acute worsening of chronic dark stool which he noted today. He notes that he takes approximately 3 tablets of regular strength Motrin 3 times a day and has been doing so for the past several months. Manan has been experiencing symptoms of regular weakness, dizziness, fatigue, for which he is being worked up by his PCP, endocrinology, and a pending cardiology consult. He states that taking the Motrin has seemed to help with the symptoms and therefore that is why he is been taking this for so long. He notes that he has noticed some dark stool in the past however today especially it seemed closer to black in color which was concerning to him. He also notes that yesterday he felt extremely fatigued, was having difficulty sleeping, reports nausea, vomiting, weakness. He got up to use the restroom at which time he collapsed and is unsure if he passed out, but laid on the floor until he was found by his roommate. He was due to have a appointment at [facility] today, however felt too weak to get up and go to this appointment. When he vomited today he states this was green in color and denies any pink frothy or red substance in the vomit. Principal Diagnosis Symptomatic anemia and POTS Discharge Exam General: Well-appearing male, in no significant distress. HEENT: No scleral icterus, PERRLA, neck supple. Atraumatic. Cardiovascular: Regular rate and rhythm, no extra sounds. Pulmonary: Clear to auscultation bilaterally, normal work of breathing. Abdomen: Soft, nontender, nondistended, positive bowel sounds. Musculoskeletal: Atraumatic, no peripheral edema. Neurologic: Patient awake alert and oriented x 3, full strength in all 4 extremities. Cranial nerves 2 through 12 grossly intact. Skin: Warm, dry, no rash Discharge Data Allergies Allergy/AdvReac Type Severity Reaction Status Date / Time sulfamethoxazole Allergy Unknown Unverified 07/31/19 19:54 Consultations 07/31/19 19:36 ED Decision to Admit Stat 07/31/19 22:52 Consult Gastroenterology Routine Procedures Performed Operation Date: 08/01/19 16:00 Actual Procedures p Esophagogastroduodenoscopy - Costa Rodriguez Operation Date: 08/02/19 16:30 Actual Procedures p Colonoscopy - Costa Rodriguez Ordered Studies 07/31/19 17:25 CT angio head w con Stat CT angio neck with con Stat CT head/brain wo con Stat Hospital Course (1) Anemia: Patient is a pleasant 23-year-old male [facility] student with PMH anxiety, presents after collapse, found to be anemia with chronic NSAID use and dark tarry stools. 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 -Monitor H and H q6h Hemoglobin dropped to 8 from 11. Hemoglobin was likely hemo concentrated Improved to 9 after transfusion. Upper and lower scope were negative except for a small ulcer in the stomach. He will be on a PPI for 2 month once daily.as stated in the patient instructions. Dizziness/nausea/vomiting/collapse/weakness This is likey secondary to his first problem. Patient reports having episodes of tachycardia as an outpatient but has not been diagnosed with POTS. transferred to med/surg with tele. echo was negative. dizziness has improved. will monitor. (2) NSAID long-term use: Likely contributed to problem 1. Patient likely getting rebound/overuse headaches from this as well. Recommended to stop NSAIDS once he is discharge. He should cut back from coffee once he completes with finals. (3) Dizziness: likely multifactorial (4) Anxiety and depression: Anxiety -Cont lexapro 15 (5) Nausea and vomiting: (6) Collapse: syncope from problem number 1 (7) POTS (postural orthostatic tachycardia syndrome): Despite being admitted for anemia, and improving his anemia by transfusion. Patient hemoglobin improved, but his symptoms remained. given his history, it appears to be that his anxiety and dizziness are chronic. During my exam, he had increase in tachycardia of about 30 beats on monitor, with and elevation HR of 120 when standing. His blood pressure, did not change in the minimum. His symptoms even at rest appear to be from pots. Patient even explains that when he takes fluid, or eats, his symptoms improve with point towards the hydration and likely salt intake that POTS requires. Will place him on fludrocortisone. And gave him extensive instructions. Patient will likely require an increase o f his symptoms. I anticipate that over time, his symptoms will improve. He would also likely benefit from tapering off his coffee once he graduates. His anxiety is also likely fueled by POTS. Hopefully, his anxiety medications can be slowly tapered once he feels better. Thi was also discussed with the purchasing manager/sales operations/dispatch who did not see patient but agree with the assessment after discussing case with the patient's permission. He should followup with his PCP at home after he graduates in 2 weeks and with a POTS SPECIALIST. He should try all the recommendations before stating that his treatment failed. Total Time Total Time Spent Total Time Spent (In Minutes): 70 Discharge Plan Discharge Items Patient Disposition: Home - Self-Care Reason For Visit: UPPER GI BLEED, ANEMIA Discharge Diagnosis: Upper GI bleed, Anemia Activity: Resume your previous activity Non-emergency contact: Primary Care Provider Call non-emergency contact if: you have any medication questions Follow-up/Referrals: [facility] [Primary Care Provider] - Diet: Regular Addtl Attending Provider Instructions: You were found to have a low level of blood likely from the stomach ulcer that was fpund on the upper scope. You will be placed on a proton pump inhibitor. Recommend that you do not take any NSAID: like motrin or aleve. You can take tylenol. Will recommend repeating hemoglobin in 5 days. The most appropriate recommendation would be to take the Protonix in the morn ing, about 60 minutes before food. will recommend followup with PCP in 1-2 weeks What are everyday ways to help manage POTS? Diet and nutrition Increase sodium in your diet to 3,000 mg to 10,000 mg per day. Drink 2-2.5 liters per day of fluids. Water is a good choice. Sports drinks may be used, but watch calories and if you have food sensitivities to these drinks ingredients Small and frequent meals are better tolerated and reduce POTS symptoms. Diet with high fiber and complex carbohydrates may help reduce blood glucose (sugar) spikes and lessen POTS symptoms. Keep your nutrition balanced with protein, vegetables, dairy, and fruits. Plan meals as POTS patients may occasionally not have stamina for grocery shopping and preparing meals. Plan meals when your energy is at its peak. If possible, make it a family plan to prepare food and share grocery shopping responsibilities. Dont over-rely on processed foods. Processed foods are easy to prepare and are appealing when one has reduced energy, but usually have less nutritional value Beneficial salty snacks may include chicken or beef broth, vegetable broth, pickles, olives, salted fish like sardines/anchovies, and nuts. Dont over-rely on snack chips and crackers for salt Plan grocery store shopping by having a list to make sure healthy food choices and POTS care (hydration and salty supplements). If your stamina is reduced have someone help you shop, carry, and put away your groceries Health conditions can be costly. Do your best not to compromise nutrition and food choices to save money You may need a dietary and nutrition consult ordered by your doctor to help you with your diet. This consult can be especially helpful for those with celiac and other dietary sensitivities Often in early phase of POTS patients do not like how their bodies feel and look. Be careful of fad diets or diet supplements for weight loss Monitoring POTS Taking and writing down your vital information (blood pressure and pulse) can give you insight and better control over your POTS, and helps your doctor fine tune your treatment. Check blood pressure and pulse at the same time daily (in the morning and after dinner). Its very helpful to do this for the first few months of your diagnosis. Also check blood pressure and pulse when you are not feeling well. Heart rate/pulse Measuring heart rate can give you insight as you deal with POTS. Other facts about heart rate and POTS: A normal heart rate is between 60 to 100 beats per minute. A fast heart rate over 100 beats per minute can be a condition called tachycardia. A slow heart rate under 60 beats per minute is called bradycardia. High or low rates can cause symptoms of POTS. Blood pressure Blood pressure is the pressure of the blood in the blood vessels in the circulatory system. Blood pressure is related to the heart beating and the diameter and elasticity of the artery martin. Blood pressure has two components, systolic and diastolic. Blood pressure is recorded as systolic/diastolic. For example, a blood pressure reading of 120/80 represents the systolic being the 120 number and the diastolic being the 80 number The systolic refers to the amount of pressure in the arteries during the contraction of your heart muscles (heart beats). The diastolic refers to the blood pressure between heart beats Normal blood pressure is between is 90-120 for systolic and 60-80 for diastolic. Many patients will have stable blood pressure readings since the adrenergic response to keep heart rate increased will reduce blood pressure drops. POTS patients can have moments of hypertension with the systolic over 140 or diastolic over 85. If hypertension occurs in many readings, inform your POTS specialist of these consistent readings of hypertension Low blood pressure is below 90/60. Blood pressure logging that reveal low blood pressure readings can be helpful for POTS treatment Exercise and physical activity Exercise and physical activity are martinez to managing POTS. Here are important things to know as you undergo an exercise program such as cardiac rehab, as well as other physical activities. Talk with your healthcare provider for specific instructions on these exercises. Isometric exercises involve radames your muscles without actually moving your body. Isometrics squeeze the muscle and push the blood back toward the heart. They are simple to do and can be done lying in bed or seated in a comfortable chair. It is a good idea to do these in bed before getting up to prepare your body for sitting and standing Transition slowly with your body. Go from lying to sitting on the edge of the bed. Stay there for several minutes, allowing the body to naturally adjust to the change in position. Once you are standing, pause and wait before walking to allow blood pressure to adjust again. If you feel lightheaded at any point, wait for a few minutes in that position to see if it resolves. If not, then return to the prior position as your body is not adjusting properly. SLOWLY is the martinez Begin a modest walking program. Count how many steps you can do without inducing symptoms. These steps are your initial baseline. Start with walking once a day and go a little further in time, distance, or by adding steps. If you feel good, add a second walk in the day. A simple strategy for counting steps is to do 100- 300 steps per awakening hour during the day. Fitness trackers can monitor steps and distance easily. Every week or every few weeks add more steps to your daily total Simple yoga with focusing on breathing may help reduce POTS symptoms. As you do better with your POTS, more fitness and exercise regimens may be started. Sleep Try to maintain a typical sleep schedule. Go to bed consistently at a certain time and set a consistent time to wake up. The best sleep hygiene and good rest comes from staying consistent with your sleep schedule every day. Even if you had a poor night of sleep, try to get up at your regular time. A consistent sleep schedule, even with a bad nights sleep, helps you feel better in the intermodal dispatcher Excessive daytime napping may make nighttime sleep less restful. Most people need 7 to 10 hours sleep at night. Be aware of POTS symptoms of chest pain, sweating, restlessness, and racing heart rate during bedtime. These symptoms interfere with sleep quality and may have to be addressed by your POTS specialist Avoid excessive television viewing or use of tablet/smartphone/computer in bed. These technologies can interfere with sleep quality Raise the head of your bed 6-10 inches to help alleviate POTS symptoms. The entire bed must be at an angle. Raising the head of the bed will reduce urine formation overnight and increase fluid volume in your circulation in the morning. This may help you wake up more easily Make sure the temperature is ideal in your bedroom to help you get proper rest. Pending Studies at Discharge: No Stand-Alone Forms: My [facility], Smoking Cessation Medications and DC Order Prescriptions: New pantoprazole 40 mg Tablet,Delayed Release (Dr/Ec) 40 mg PO QAM Qty: 30 RF: 0 fludrocortisone 0.1 mg Tablet 0.1 mg PO QAM Qty: 30 RF: 0 Continued minocycline 100 mg Tablet 100 mg PO BID RF: 0 Unknown Topical Gel 1 applic topical DAILY RF: 0 Unknown Skin Cream 1 applic topical DAILY RF: 0 escitalopram oxalate [Lexapro] 10 mg Tablet 15 mg PO DAILY RF: 0 cholecalciferol (vitamin D3) [Vitamin D3] 1,000 unit Tablet,Chewable 1,000 unit PO DAILY RF: 0 Discontinued ibuprofen [Motrin IB] 200 mg Capsule 600 - 800 mg PO Q6H PRN (Reason: Pain) RF: 0 Discharge Orders: Discharge Order (Routine); Ordered 08/03/19 Ordered By: Piyush Dominguez Admission Data Admit Date/Time: 08/01/19 09:01 Attending Provider: Piyush Dominguez Admit Provider: Julia Velasquez Primary Care Provider: [facility] Other Providers: Nehemias Jesus ; Costa Rodriguez Other Interventions: Discharge Summary Assessment (RN) Last Done: 08/03/19 11:42 DC Date/Time DO NOT enter until pt leaves facility: 08/03/19 13:14
== END 2019-08-03 13:14 | disposition home or self-care (01) | DRG 811 ==
LOC: 3N 16:24 → ED 16:24 → SUATTDRO 21:52 → 3N 22:32 → 2W 08-01 10:52